=== PATIENT | female | born 1955 | race Caucasian/White ===

== ENCOUNTER 2020-10-05 23:07 | Inpatient (IN) | payer MEDICARE, SELFPAY ==
[2020-10-05 23:19] VITALS: BP 168/112; PULSE 73; RESP 20; TEMP 36.8; O2SAT 97; BMI 36.6
[2020-10-06] VITALS (28 sets, daily range): BP systolic 105–229; BP diastolic 72–118; PULSE 66–79; RESP 12–29; TEMP 36.8–37.3; O2SAT 90–98
[2020-10-06 00:54] LABS: Alanine Aminotransferase 44 U/L (0-33); Albumin Level 4.6 g/dL (3.5-5.2); Alkaline Phosphatase 105 IU/L (35-105); Anion Gap 16.9 (5-19); Aspartate Amino Transferase 20 U/L (0-32); Blood Urea Nitrogen 12 mg/dL (8-23); Calcium 10.5 mg/dL (8.5-10.5); Carbon Dioxide 27 mmol/L (22-29); Chloride 92 mmol/L (98-107); Creatinine Clr Calc Pharmacy 72.4521; Globulin 3.5 g/dL (1.3-4.6); Glucose 167 mg/dL (65-115); Lipase 23 U/L (13-60); Osmolality Calculated 280 mOsm/kg (285-295); Sodium 133 mmol/L (136-145); Total Bilirubin 0.9 mg/dL (0.15-1.2); Total Protein 8.1 g/dL (6.6-8.7)
--- NOTE | 2020-10-06 01:04 | W.ED.ABDPA2 ---
HPI - Abdominal Pain General: Chief Complaint: Abdominal Pain Stated Complaint: Abdominal Pain Time Seen by Provider: 10/06/20 00:43 Source: patient and family Mode of arrival: ambulatory Limitations: no limitations History of Present Illness: HPI narrative: Ms. Abrams is a nice 64-year-old female who comes in with a complaint of right upper quadrant abdominal pain. Patient states that she has been sick and nauseated and is vomited at least 3-4 times. Her vomit was nonbloody. She states eating or drinking makes her pain worse and really nothing makes it better. Patient denies having anything similar to this in the past. She denies any chest pain, shortness of breath, fever, cough or respiratory complaints. Denies any diarrhea or constipation. Patient does not describe any urinary frequency, urgency or dysuria. Patient states that she was concerned as her pain was not getting better and so she elected to come to the hospital to get it checked out. Patient states currently her pain is better but is still present. She denies any chronic medical problems although she states she is been told in the past she has high blood pressure but she does not take any medicine for this. Patient has had a small bowel resection in the past when she was 6 months old for intussusception but no other surgeries since that time. Associated Symptoms: Reports nausea and vomiting; Denies chills, coffee ground emesis, constipation, GI cramping, diarrhea, dysuria, fever(s), heartburn, hematochezia, hematuria, hematemesis, melena and syncope Review of Systems Const: Denies: fever(s), chills, body aches, fatigue, malaise or diaphoresis Eyes: Denies: change in vision, blurry vision, photophobia, eye discomfort, eye discharge, eye redness or yellow eyes ENMT: Denies: throat pain, odynophagia, hoarseness, swelling of lips/tongue, ear or mastoid pain, ear discharge, change in hearing or nasal discharge Card: Denies: chest pain, palpitations, irregular heart rhythm, edema, lightheadedness, syncope, pre-syncope, dyspnea on exertion or orthopnea Resp: Denies: dyspnea, productive cough, non-productive cough, wheezing, hemoptysis or chest congestion GI: Reports: abdominal pain, nausea and vomiting; Denies: hematemesis, coffee ground emesis, heartburn, diarrhea, constipation, GI cramping, hematochezia or melena : Denies: flank pain, dysuria, urinary frequency, urinary urgency or hematuria Musc: Denies: neck pain, back pain, extremity pain, extremity swelling, joint pain, joint swelling, joint redness, joint warmth or joint stiffness Skin/Breast: Denies: rash, pruritus, erythema, skin pain or skin tenderness Neuro: Denies: headache(s), numbness in extremities, weakness in extremities, sensory changes, lack of coordination, difficulty walking, dizziness, vertigo, confusion, Slurred speech present or seizure-like activity Jose Alejandro/Lymph: Denies: easy bruising, easy bleeding, petechiae, purpura or enlarged lymph nodes All/Imm: Denies: urticaria, throat swelling, tongue swelling, facial swelling or acute wheezing PFSH ED PFSH: Medical History (Updated 10/06/20 @ 05:35 by Kan Mathews MD) Hypertension Surgical History (Updated 10/06/20 @ 05:37 by Kan Mathews MD) H/O resection of small bowel Intussusception as an Laceration of neck Anterior superficial neck injury sutured -- ran into barbed wire Vaginal injury Repair of vaginal tear sustained during childbirth Social History (Updated 10/06/20 @ 05:36 by Kan Mathews MD) Smoking and tobacco status: never smoked Alcohol intake: current Alcohol intake frequency: holidays/special occasions only Alcohol use comment: Maybe twice a year Physical Exam Const: COMMON NORMALS: no acute distress, patient oriented x3, no limitations and alert GENERAL APPEARANCE: cooperative HENMT: COMMON NORMALS: normocephalic, atraumatic, external ears normal, EAC's normal and Normal external nose present HEAD & SCALP: normal to inspection, normocephalic and atraumatic FACE & SINUS: normal facial exam and face symmetric NOSE: Normal external nose present and Normal nares present EXTERNAL EAR: Yes external ears normal EXTERNAL AUDITORY CANAL: EAC's normal MOUTH: Normal oral and palatal mucosa present, lip normal and tongue normal Eye: COMMON NORMALS: Equal, round and reactive pupils present and conjunctivae normal GENERAL EYE: appearance normal, both eyes and all related structures ALIGNMENT: Yes alignment normal PERIORBITAL: periorbital findings normal EYELID: eyelids normal CONJUNCTIVA: Yes conjunctivae normal SCLERA: sclerae normal PUPIL: Yes Equal, round and reactive pupils present Neck/C-Spine: COMMON NORMALS: full ROM, no lymphadenopathy, supple, no meningeal signs and no JVD GENERAL: Yes normal visual inspection and Yes trachea midline Chest: COMMONS NORMALS: normal inspection of the chest and normal palpation of entire chest wall Resp: COMMON NORMALS: normal respiratory effort, No retractions, No use of accessory muscles and clear to auscultation bilaterally EFFORT & INSPECTION: Yes able to speak in complete sentences and Yes symmetric chest movement AUSCULTATION: clear to auscultation bilaterally, no crackles, no rales, no rhonchi and no wheezes Cardio: COMMON NORMALS: no JVD, regular rate, regular rhythm, S1 normal heart sound present and S2 normal heart sound present RATE: regular rate RHYTHM: regular rhythm HEART SOUNDS: S1 normal heart sound present, S2 normal heart sound present, no click, no gallops, no murmurs and no rubs GI: COMMON NORMALS: No hepatosplenomegaly present PALPATION: Yes Tenderness to palpation present (GI) Details: RUQ (severe), No Guarding due to palpation present (GI), No Rigid due to palpation, Yes No hepatosplenomegaly present, No Hernia present, No Palpable mass present and No Pulsatile mass present : COMMON NORMALS: Yes no CVA tenderness BLADDER/KIDNEY EXAM: Yes no CVA tenderness EXTERNAL FEMALE EXAM: No Hernia present Back/Pelvis: COMMON NORMALS: no CVA tenderness, thoracic and lumbar spine normal to inspection, no thoracic nor lumbar tenderness and thoraco-lumbar ROM normal Extremity: COMMON NORMALS: normal to inspection, full ROM, capillary refill normal, no joint enlargement, no clubbing, cyanosis or edema and no calf tenderness Neuro: COMMON NORMALS: patient oriented x3, CN's II-XII intact bilaterally, moves all extremities, no focal motor deficits and no sensory deficits noted SENSORIUM/ORIENTATION: Yes alert MENINGEAL SIGNS: Yes no meningeal signs SPEECH: speech normal Psych: COMMON NORMALS: mental status grossly normal, Normal thought process present, cooperative, normal affect, speech normal and activity/motor behavior normal SPEECH: Yes normal speech THOUGHT PROCESS: Normal thought process present Skin: COMMON NORMALS: no rashes or lesions noted, turgor normal, no jaundice, no petechiae and no mottling GENERAL SKIN EXAM: no rashes or lesions noted and turgor normal Course Vital Signs: Vital signs: Vital Signs Temperature 98.2 F 10/05/20 23:19 Pulse Rate 71 10/06/20 04:35 Respiratory Rate 19 H 10/06/20 03:02 Blood Pressure 165/92 10/06/20 04:35 Pulse Oximetry 94 10/06/20 04:35 MDM - Abdominal Pain MDM Narrative: Medical decision making narrative: Patient's signs and symptoms are consistent with gallstone pancreatitis. There is no sign of a common bile duct stone at this time. I have reviewed the case in full with Dr. Mathews and he is agreeable to admission for IV antibiotics and probable cholecystectomy. Differential Diagnosis: Differential diagnosis abdominal pain: Likely abdominal pain, acute appendicitis, calculus of kidney, constipation, diverticulitis, gastroenteritis, pancreatitis and small bowel obstruction Lab Data: Attestation: I reviewed the patient's lab results. Labs: Lab Results 10/06/20 10/06/20 10/06/20 Range/Units 00:20 00:20 00:40 WBC 21.2 H (4.0-10.0) 10^3/ uL RBC 5.91 H (4.1-5.3) 10^6/u L Hgb 15.8 H (11.5-15.3) g/dL Hct 47.8 H (37.0-47.0) % MCV 80.9 L (81-99) fL MCH 26.7 L (28.0-34.0) pg MCHC 33.1 (30.0-36.0) g/dL RDW 13.5 (12.1-15.1) % Plt Count 343 (130-400) 10^3/c mm MPV 11.0 H (7.4-10.4) fL Neut % (Auto) 85.2 % Lymph % (Auto) 6.4 % [place] % (Auto) 7.4 % Eos % (Auto) 0.2 % Baso % (Auto) 0.3 % Neut # (Auto) 18.06 H (1.8-7.7) 10^3/u L Lymph # (Auto) 1.4 (0.8-4.8) 10^3/u L [place] # (Auto) 1.6 H (0.2-0.9) 10^3/u L Eos # (Auto) 0.0 (0.0-0.8) 10^3/u L Baso # (Auto) 0.1 (0.0-0.1) 10^3/u L Nucleated RBC % (a uto) 0 % Nucleated RBCs # 0.0 /100WBC Sodium 133 L (136-145) mmol/L Potassium 2.9 L (3.5-5.1) mmol/L Chloride 92 L (98-107) mmol/L Carbon Dioxide 27 (22-29) mmol/L Anion Gap 16.9 (5-19) BUN 12 (8-23) mg/dL Creatinine 0.6 (0.5-0.9) mg/dL GFR Calculation 100.0 (90-130) mL/min Glucose 167 H (65-115) mg/dL Calculated Osmolal ity 280 L (285-295) mOsm/k g Calcium 10.5 (8.5-10.5) mg/dL Total Bilirubin 0.9 (0.15-1.2) mg/dL AST 20 (0-32) U/L ALT 44 H (0-33) U/L Alkaline Phosphata se 105 (35-105) IU/L Total Protein 8.1 (6.6-8.7) g/dL Albumin 4.6 (3.5-5.2) g/dL Globulin 3.5 (1.3-4.6) g/dL Lipase 23 (13-60) U/L Urine Color Yellow (Yellow) Urine Appearance Sl hazy (CLEAR) Urine pH 6.5 (5-7) Ur Specific Gravit y 1.015 (1.005-1.030) Urine Protein 2+ H (Negative) Urine Glucose (UA) 2+ (Normal) Urine Ketones 2+ H (Negative) Urine Blood 2+ H (Negative) Urine Nitrate Negative (Negative) Urine Bilirubin 1+ H (Negative) Urine Urobilinogen 1 H (Negative) mg/dL Ur Leukocyte Reina ase 2+ H (Negative) Urine RBC 15-25 H (0-2) /hpf Urine WBC 25-40 H (0-5) /hpf Ur Squamous Epith Cells 25-40 H (0-5) /hpf Amorphous Sediment Not Reportable Urine Bacteria 2+ H (NONE) /hpf Imaging Data ^: US: Radiologist's impression: [facility] [address] [place] [address] Ultrasound Report Signed Patient: Mariama Busby Unit #: [id number] : 1955 Age/Sex: 64 / F ADM Date: 10/05/20 Loc: ER Room/Bed: Attending Dr: Ordering Provider/Ordering MD: Yessi Kennedy DO Date of Service: 10/06/20 Procedure(s): US abdomen complete* [id number] Accession Number(s): [id number] Report Number: [id number] PROCEDURE INFORMATION: Exam: US Abdomen Complete Exam date and time: 10/06/2020 2:00 AM Age: 64 years old Clinical indication: Abdominal pain; Acute; Prior surgery; Surgery date: 6+ months; Surgery type: Intussusception at 6 months; Patient HX: PT is npo since 10 am yesterday TECHNIQUE: Imaging protocol: Real-time ultrasound of the abdomen with image documentation. COMPARISON: No relevant prior studies available. FINDINGS: Liver: The liver is mildly prominent measuring 17.2 cm craniocaudal dimension. Gallbladder: There is a Phrygian cap of the gallbladder. Gallstones and gallbladder sludge are seen within the pterygium cap and within the gallbladder neck. There is asymmetric gallbladder wall thickening measuring up to 5.2 mm. There is a positive sonographic Butterfield sign elicited. Common bile duct: Common bile duct measures 6.9 mm. There is no evidence for extrinsic masses or choledocholithiasis. Pancreas: Visualized pancreas is unremarkable. Right kidney: Normal. No mass. No hydronephrosis. Left kidney: Normal. No mass. No hydronephrosis. Spleen: Normal. No splenomegaly. Aorta: Normal. No aneurysm. Inferior vena cava: Normal. US/US abdomen complete* [id number] IMPRESSION: 1. Phrygian cap filled with gallstones and gallbladder sludge. Gallstones and sludge is seen in the gallbladder neck as well. There is gallbladder wall thickening measuring up to 5.2 mm and a positive sonographic Butterfield sign is elicited. These findings are compatible with gallstone cholecystitis. 2. Mildly prominent common bile duct without evidence of extrinsic masses or choledocholithiasis. 3. Mild hepatomegaly Dictated By: Matt Collins MD Signed By: Matt Collins MD Signed Date/Time: 10/06/20225 DD/ 4 CT Abd/Pel: Radiologist's impression: [address] [address] [address] Scan Report Signed Patient: Mariama Busby Unit #: [id number] : 1955 Age/Sex: 64 / F ADM Date: 10/05/20 Loc: ER Room/Bed: Attending Dr: Ordering Provider/Ordering MD: Yessi Kennedy DO Date of Service: 10/06/20 Procedure(s): CT abdomen pelvis w con* [id number] Accession Number(s): [id number] Report Number: [id number] PROCEDURE INFORMATION: Exam: CT Abdomen And Pelvis With Contrast Exam date and time: 10/06/2020 2:05 AM Age: 64 years old Clinical indication: Abdominal pain; Generalized TECHNIQUE: Imaging protocol: Computed tomography of the abdomen and pelvis with intravenous contrast. Radiation optimization: All CT scans at this facility use at least one of these dose optimization techniques: automated exposure control; mA and/or kV adjustment per patient size (includes targeted exams where dose is matched to clinical indication); or iterative reconstruction. Contrast material: OMNI 300; Contrast volume: 95 ml; Contrast route: INTRAVENOUS (IV); COMPARISON: US abdomen complete* [id number] 10/06/2020 1:38 AM RADIATION DOSE METRICS: Total DLP (mGy-cm): 1222.77 FINDINGS: Lungs: Some strandy opacities are present in the left lung base medially likely representing chronic parenchymal scarring or atelectasis. Liver: Normal. No mass. Gallbladder and bile ducts: There is a pterygium cap of the gallbladder. Prominent gallstone is seen within the gallbladder neck. There is some gallbladder wall thickening seen measuring 5.6 mm There are findings compatible with gallstone cholecystitis seen on an abdominal ultrasound obtained earlier today. Pancreas: Normal. No ductal dilation. Spleen: Normal. No splenomegaly. Adrenal glands: Normal. No mass. Kidneys and ureters: There is a 3.3 mm nonobstructing left renal calculus present. Stomach and bowel: Unremarkable. No obstruction. No mucosal thickening. Appendix: No evidence of appendicitis. Intraperitoneal space: Unremarkable. No free air. No significant fluid collection. Vasculature: Unremarkable. No abdominal aortic aneurysm. Lymph nodes: Unremarkable. No enlarged lymph nodes. Urinary bladder: There are strandy and hazy opacity seen along the serosal margin of the bladder, findings could represent cystitis although the bladder is incompletely distended. Reproductive: Unremarkable as visualized. Bones/joints: Unremarkable. No acute fracture. Soft tissues: Unremarkable. CT/CT abdomen pelvis w con* [id number] IMPRESSION: 1. Findings compatible with gallstone cholecystitis. These findings correlate with the abdominal sonogram obtained earlier today. 2. 3.3 mm nonobstructing left renal calculus 3. Opacities are seen along the serosal margin of the bladder possibly representing inflammatory changes and cystitis although the bladder is incompletely distended. Radiation Dose CTDIVOL = (mGy): DLP = 1222.77 (mGy-cm) Dictated By: Matt Collins MD Signed By: Matt Collins MD Signed Date/Time: 10/06/20257 DD/ 6 Discharge Plan Discharge Patient Disposition: Admitted As Inpatient Admit Provider: Kan Mathews Clinical Impression: Acute calculous cholecystitis Condition: Stable Coding Level of Care Code ED Jailkeeper for Chg Fwd Exam Comprehensive
[2020-10-06 01:21] LABS: Potassium 2.9 mmol/L (3.5-5.1)
[2020-10-06 01:28] LABS: Basophils # 0.1 10^3/uL (0.0-0.1); Basophils % 0.3 %; Eosinophils % 0.2 %; Hematocrit 47.8 % (37.0-47.0); Hemoglobin 15.8 g/dL (11.5-15.3); Lymphocytes # 1.4 10^3/uL (0.8-4.8); Lymphocytes % 6.4 %; Mean Corpuscular HGB Conc 33.1 g/dL (30.0-36.0); Mean Corpuscular Hemoglobin 26.7 pg (28.0-34.0); Mean Corpuscular Volume 80.9 fL (81-99); Monocytes # 1.6 10^3/uL (0.2-0.9); Monocytes % 7.4 %; Neutrophils # 18.06 10^3/uL (1.8-7.7); Neutrophils % 85.2 %; Nucleated Red Blood Cells % 0 %; Platelet Count 343 10^3/cmm (130-400); Red Blood Count 5.91 10^6/uL (4.1-5.3); Red Cell Distribution Width 13.5 % (12.1-15.1); White Blood Count 21.2 10^3/uL (4.0-10.0)
[2020-10-06] MEDS: sodium chloride 0.9% 1,000 ML 999 ML IV (01:30)
[2020-10-06] MEDS: ondansetron 2 mg/ML SDV 2 mL 4 MG IVP (01:32)
[2020-10-06] MEDS: morphine 4 mg/mL SDV 1 mL IVP ×2 (01:32→06:27)
[2020-10-06 01:38] LABS: Blood Urine 2+ (Negative); Glucose Urine UA 2+ (Normal); Ketones Urine 2+ (Negative); Nitrate Urine Negative (Negative); Protein Urine 2+ (Negative); Specific Gravity, Urine 1.015 (1.005-1.030); Urine Appearance SL Hazy (CLEAR); Urine Color Yellow (Yellow); pH Urine 6.5 (5-7)
[2020-10-06 01:39] LABS: Add Urine Microscopic? YES; Bilirubin Urine 1+ (Negative); Leukocyte Esterase Urine 2+ (Negative); Urobilinogen Urine 1 mg/dL (Negative)
[2020-10-06 01:44] LABS: Add Urine Culture? No; Bacteria Urine 2+ /hpf; RBC Urine 15-25 /hpf (0-2); Squamous Epithelial Cell Urine 25-40 /hpf (0-5); WBC Urine 25-40 /hpf (0-5)
--- NOTE | 2020-10-06 02:03 | CTR_ITS ---
PROCEDURE INFORMATION: Exam: CT Abdomen And Pelvis With Contrast Exam date and time: 10/06/2020 2:05 AM Age: 64 years old Clinical indication: Abdominal pain; Generalized TECHNIQUE: Imaging protocol: Computed tomography of the abdomen and pelvis with intravenous contrast. Radiation optimization: All CT scans at this facility use at least one of these dose optimization techniques: automated exposure control; mA and/or kV adjustment per patient size (includes targeted exams where dose is matched to clinical indication); or iterative reconstruction. Contrast material: OMNI 300; Contrast volume: 95 ml; Contrast route: INTRAVENOUS (IV); COMPARISON: US abdomen complete* [id number] 10/06/2020 1:38 AM RADIATION DOSE METRICS: Total DLP (mGy-cm): 1222.77 FINDINGS: Lungs: Some strandy opacities are present in the left lung base medially likely representing chronic parenchymal scarring or atelectasis. Liver: Normal. No mass. Gallbladder and bile ducts: There is a pterygium cap of the gallbladder. Prominent gallstone is seen within the gallbladder neck. There is some gallbladder wall thickening seen measuring 5.6 mm There are findings compatible with gallstone cholecystitis seen on an abdominal ultrasound obtained earlier today. Pancreas: Normal. No ductal dilation. Spleen: Normal. No splenomegaly. Adrenal glands: Normal. No mass. Kidneys and ureters: There is a 3.3 mm nonobstructing left renal calculus present. Stomach and bowel: Unremarkable. No obstruction. No mucosal thickening. Appendix: No evidence of appendicitis. Intraperitoneal space: Unremarkable. No free air. No significant fluid collection. Vasculature: Unremarkable. No abdominal aortic aneurysm. Lymph nodes: Unremarkable. No enlarged lymph nodes. Urinary bladder: There are strandy and hazy opacity seen along the serosal margin of the bladder, findings could represent cystitis although the bladder is incompletely distended. Reproductive: Unremarkable as visualized. Bones/joints: Unremarkable. No acute fracture. Soft tissues: Unremarkable. CT/CT abdomen pelvis w con* [id number] IMPRESSION: 1. Findings compatible with gallstone cholecystitis. These findings correlate with the abdominal sonogram obtained earlier today. 2. 3.3 mm nonobstructing left renal calculus 3. Opacities are seen along the serosal margin of the bladder possibly representing inflammatory changes and cystitis although the bladder is incompletely distended. Radiation Dose CTDIVOL = (mGy): DLP = 1222.77 (mGy-cm)
[2020-10-06] MEDS: piperacillin-tazobactam 3.375 GM in sodium chloride 0.9% (plus) 50 ML IV ×2 (02:21→17:13)
[2020-10-06] MEDS: iohexol 300 mg/mL 100 mL Btl IV (02:40)
[2020-10-06] MEDS: labetalol 5 mg/mL SDV 20mL 10 MG IVP (02:59)
[2020-10-06] MEDS: potassium chloride premix 100 ML 25 MEQ IV (03:00)
--- NOTE | 2020-10-06 05:29 | P.HP_ITS ---
Providers/Chief Complaint Admitting Physician: Kan Mathews MD Chief Complaint: Abdominal Pain History of Present Illness Mariama Busby is a 64 year old female who says she was in her normal state of health until 1 week ago when she experienced some right upper quadrant discomfort after eating a spicy hamburger from [employer]. She said the pain was in her right upper quadrant and went around to her back. She had never experienced this pain before. She said by the end of the day it actually was a little bit better but it persisted throughout the next several days. 2 days ago on she ate some spicy tortellini soup and had a recurrence of the pain in the night. This time it was associated with nausea and vomiting. There was no evidence of hematemesis. She said she felt cold and clammy at times but never took her temperature. She said the pain persisted and so she came in the emergency room last night. Imaging revealed changes consistent with acute calculus cholecystitis. The patient has not noticed any type of food intolerance prior to 1 week ago. In short, it does not sound like she has had any type of ongoing symptoms of progressive biliary colic. Of note, the patient has a history of hypertension but is in between doctors right now, after most recently seeing a nurse practitioner for her medical care. She says that the Covid pandemic apparently has made it very difficult for her doctor's office to get back in touch with her when she calls and so she is going to change doctors. She was on medication for hypertension but she ran out and has not obtained more. Review of Systems General: Reports: 10 or more systems reviewed and unremarkable except in HPI and below Const: Reports: chills ( Cold and clammy ); Denies: fever(s) GI: Reports: abdominal pain, nausea, vomiting and constipation (Chronic); Denies: hematemesis, coffee ground emesis, hematochezia or melena Medications/Allergies Allergies Allergy/AdvReac Type Severity Reaction Status Date / Time No Known Allergies Allergy Verified 10/05/20 23:25 PFSH Acute PFSH: Medical History (Updated 10/06/20 @ 05:35 by Kan Mathews MD) Hypertension Surgical History (Updated 10/06/20 @ 05:37 by Kan Mathews MD) H/O resection of small bowel Intussusception as an infant Laceration of neck Anterior superficial neck injury sutured -- ran into barbed wire Vaginal injury Repair of vaginal tear sustained during childbirth Social History (Updated 10/06/20 @ 05:36 by Kan Mathews MD) Smoking and tobacco status: never smoked Alcohol intake: current Alcohol intake frequency: holidays/special occasions only Alcohol use comment: Maybe twice a year Vitals/I&O/Wt Last Vital Signs Temp 98.2 F 10/05/20 23:19 Pulse 71 10/06/20 04:35 Resp 19 H 10/06/20 03:02 BP 165/92 10/06/20 04:35 Pulse Ox 94 10/06/20 04:35 10/05/20 10/05/20 10/06/20 14:59 22:59 06:59 Intake Total 1050 / 1050 Balance 1050 / 1050 Weight last 48 hrs Weight 200 lb Physical Exam Narrative: EXAM NARRATIVE: The patient was encountered in her room in the emergency department. She does not appear to be in any acute distress. She is hypertensive. The pupils are equal. No carotid bruits are heard. The lungs are clear anteriorly. The heart is regular. The abdomen is moderately obese. There is a well-healed left paramedian incision. Bowel sounds are present but the patient has significant tenderness in the epigastrium and the right upper quadrant with a positive Butterfield's sign. No obvious masses are palpated. The extremities do not reveal any significant edema. Neurologically the patient appears to be grossly intact. Data : 10/06/20 00:20 10/06/20 00:20 Other Labs: Laboratory Tests 10/06/20 00:20 Total Bilirubin 0.9 AST 20 ALT 44 H Alkaline Phosphatase 105 Lipase 23 US: Radiologist's impression: Gallbladder ultrasound 10/06/2020 IMPRESSION: 1. Phrygian cap filled with gallstones and gallbladder sludge. Gallstones and sludge is seen in the gallbladder neck as well. There is gallbladder wall thickening measuring up to 5.2 mm and a positive sonographic Butterfield sign is elicited. These findings are compatible with gallstone cholecystitis. 2. Mildly prominent common bile duct without evidence of extrinsic masses or choledocholithiasis. 3. Mild hepatomegaly. CT Abd/Pel: Radiologist's impression: CT scan abdomen/pelvis 10/06/2020 IMPRESSION: 1. Findings compatible with gallstone cholecystitis. These findings correlate with the abdominal sonogram obtained earlier today. 2. 3.3 mm nonobstructing left renal calculus 3. Opacities are seen along the serosal margin of the bladder possibly representing inflammatory changes and cystitis although the bladder is incompletely distended. A&P Assessment and plan (1) Acute calculous cholecystitis: I discussed gallbladder disease and gallbladder surgery with the patient. Details of acute cholecystitis were discussed. I told her that the standard of care is to proceed with a cholecystectomy in the face of acute calculus cholecystitis. Surgical risks of bleeding, infection, internal organ injury, chances of an open procedure, etc. were all gone over. The patient seems to understand and is agreeable to proceeding with a cholecystectomy. The patient has been n.p.o. since yesterday. I will make arrangements for a laparoscopic or possibly open cholecystectomy this morning. Status: Acute (2) Hypertension: I expressed the importance of establishing with/following up with a primary care doctor regarding her hypertension. She knows that she needs to do this and said that she would. Status: Acute Attestations Medical Necessity Statement*: Based on my medical assessment, presenting symptoms and consideration of the scope of surgical therapy, I expect this patient will require treatment in the hospital for a period of time spanning less than 2 midnights, and is therefore being placed in observation status. Coding Level of Care Code Acute Help Desk Support Specialist for Gaurang Vinson Diagnoses Acute calculous cholecystitis K80.00 Hypertension I10
[2020-10-06 05:49] LABS: Lactic Sepsis W/Reflex 1.4 mmol/L (0.5-2.2)
[2020-10-06] MEDS: D5-NS 0.45% + KCL 20 mEq 20 MEQ/1,000 ML BAG 100 MEQ IV (06:28)
[2020-10-06] MEDS: sodium chloride 0.9% 1,000 ML 30 ML IV (09:10)
--- NOTE | 2020-10-06 09:14 | P.ANESASSM_ITS ---
Pre-Anesthetic Assessment Pre-Anesthetic Assessment: Height/Weight: Height 1.57 m Weight 90.718 kg Temp Pulse Resp BP Pulse Ox 98.2 F 71 19 H 164/78 94 10/05/20 23:19 10/06/20 08:30 10/06/20 08:30 10/06/20 08:30 10/06/20 04:35 Proposed Procedure: Operation Date: 10/06/20 09:30 Proposed Procedures p Laparoscopic Cholecystectomy(Not Applicable) - Kan Mathews MD Was Beta Sean taken within 24 hours: N/A Social: Social History: No alcohol and No tobacco Exam: Pre-Anes Outpt Exam: alert, oriented x 3, clear to auscultation bilaterally and regular rate & rhythm Airway: Submandibular: WNL Cervical ROM: WNL MP: 2 Dentition: Full Pulmonary: Pulmonary: None reported CV/HEM: CV/HEM: HTN : : None reported Hepatic: Hepatic: None reported GI: Comments: Acute jose manuel Metabolic: Metabolic: None reported Musc/skel: Musc/skel: None reported Neuropsych: Neuropsych: None reported Anesthetic Plan: ASA status: 2 Anesthesia: General Risk of > 500 ml blood loss (7ml/kg in children): No Meds/Allergies Current Medications: Current Medications Generic Name Dose Route Start Last Admin Trade Name Freq PRN Reason Stop Dose Admin Potassium Chloride /Dextrose/Sod Cl 20 meq in 1,000 m ls @ 100 mls/hr 10/06/20 06:12 10/06/20 06:28 D5-Ns 0.45% + Stephen l 20 Meq IV 100 mls/hr .Q10H DOUGLAS Administration Morphine Sulfate 4 mg 10/06/20 06:12 10/06/20 06:27 Morphine 4 Mg/Ml Sdv 1 Ml IVP 4 mg Q4H PRN Administration SEVERE PAIN PFSH Anesthesia PFSH: Medical History (Updated 10/06/20 @ 05:35 by Kan Mathews MD) Hypertension Surgical History (Updated 10/06/20 @ 05:37 by Kan Mathews MD) H/O resection of small bowel Intussusception as an Laceration of neck Anterior superficial neck injury sutured -- ran into barbed wire Vaginal injury Repair of vaginal tear sustained during childbirth Social History (Updated 10/06/20 @ 05:36 by Kan Mathews MD) Smoking and tobacco status: never smoked Alcohol intake: current Alcohol intake frequency: holidays/special occasions only Alcohol use comment: Maybe twice a year Data Anesthesia CBC & Chem 7: 10/06/20 00:20 10/06/20 00:20 Other Labs: Laboratory Results - last 48 hr 10/06/20 10/06/20 10/06/20 00:20 00:20 00:40 WBC 21.2 H RBC 5.91 H Hgb 15.8 H Hct 47.8 H MCV 80.9 L MCH 26.7 L MCHC 33.1 RDW 13.5 Plt Count 343 MPV 11.0 H Neut % (Auto) 85.2 Lymph % (Auto) 6.4 [place] % (Auto) 7.4 Eos % (Auto) 0.2 Baso % (Auto) 0.3 Neut # (Auto) 18.06 H Lymph # (Auto) 1.4 [place] # (Auto) 1.6 H Eos # (Auto) 0.0 Baso # (Auto) 0.1 Nucleated RBC % (auto) 0 Nucleated RBCs # 0.0 Sodium 133 L Potassium 2.9 L Chloride 92 L Carbon Dioxide 27 Anion Gap 16.9 BUN 12 Creatinine 0.6 GFR Calculation 100.0 Glucose 167 H Calculated Osmolality 280 L Lactic Acid Calcium 10.5 Total Bilirubin 0.9 AST 20 ALT 44 H Alkaline Phosphatase 105 Total Protein 8.1 Albumin 4.6 Globulin 3.5 Lipase 23 Urine Color Yellow Urine Appearance Sl hazy Urine pH 6.5 Ur Specific [place] 1.015 Urine Protein 2+ H Urine Glucose (UA) 2+ Urine Ketones 2+ H Urine Blood 2+ H Urine Nitrate Negative Urine Bilirubin 1+ H Urine Urobilinogen 1 H Ur Leukocyte Esterase 2+ H Urine RBC 15-25 H Urine WBC 25-40 H Ur Squamous Epith Cells 25-40 H Amorphous Sediment Not Reportable Urine Bacteria 2+ H 10/06/20 05:10 WBC RBC Hgb Hct MCV MCH MCHC RDW Plt Count MPV Neut % (Auto) Lymph % (Auto) [place] % (Auto) Eos % (Auto) Baso % (Auto) Neut # (Auto) Lymph # (Auto) [place] # (Auto) Eos # (Auto) Baso # (Auto) Nucleated RBC % (auto) Nucleated RBCs # Sodium Potassium Chloride Carbon Dioxide Anion Gap BUN Creatinine GFR Calculation Glucose Calculated Osmolality Lactic Acid 1.4 Calcium Total Bilirubin AST ALT Alkaline Phosphatase Total Protein Albumin Globulin Lipase Urine Color Urine Appearance Urine pH Ur Specific [place] Urine Protein Urine Glucose (UA) Urine Ketones Urine Blood Urine Nitrate Urine Bilirubin Urine Urobilinogen Ur Leukocyte Esterase Urine RBC Urine WBC Ur Squamous Epith Cells Amorphous Sediment Urine Bacteria Cardiac Studies: No Data to Display
[2020-10-06] MEDS: metroNIDAZOLE IV 500 MG/100 ML PREMIX 100 MG IV (10:12)
--- NOTE | 2020-10-06 11:10 | PM.OP ---
Operative Report Date of procedure: October 06, 2020 Pre-op Diagnosis: Acute calculus cholecystitis. Post-op diagnosis: same Procedure Done: Laparoscopic cholecystectomy. Specimens removed/disposition: Gallbladder. Surgeon: Kan Mathews Anesthesia: General Estimated blood loss (mL): 25 Complications: None. Condition: stable Disposition: PACU Procedure: The patient was brought to the Operating Room and was placed in a supine position on the Operating Room table. General endotracheal anesthesia was induced. The abdomen was prepped and draped in a sterile fashion. A small vertical incision was carried out in the inferior aspect of the umbilicus. Blunt dissection was carried out down to the fascia, which was grasped with a Dolores clamp. A stay suture of 0 Vicryl was placed on either side of the midline and the midline fascia was incised. The underlying peritoneum was opened bluntly and the Gale port was placed directly into the peritoneal cavity and was held in place with the inflatable balloon. The peritoneal cavity was insufflated with carbon dioxide. The laparoscope was used to inspect the abdominal cavity. The gallbladder was clearly distended and edematous with some inflammatory changes consistent with changes typical of acute cholecystitis. No other gross abnormalities were noted. A 5 millimeter port was placed in the epigastrium under direct vision. Two 5-millimeter ports were placed on the right side of the abdomen under direct vision. The gallbladder was clearly too distended to grasp and so a laparoscopic needle was used to remove approximately 50 mL of clear mucousy fluid from the gallbladder lumen so that it could be manipulated more easily. The gallbladder was grasped and was elevated. Blunt dissection and hydrodissection were carried out in the infundibular region of the gallbladder and the cystic duct and cystic artery were identified. The gallbladder was partially removed from the liver bed using cautery and the spatula to confirm the anatomy before the structures were clipped and divided. The tissue around the infundibulum as well as in the plane between the gallbladder and liver was very edematous and fragile. The gallbladder was then removed from the liver bed using cautery and the spatula. A small hole was inadvertently made in the gallbladder during the dissection and a small amount of mucousy material drained from the lumen but no stones were ever seen to have fallen from the gallbladder. After the gallbladder had been removed from the liver bed, the laparoscope was moved to the epigastric port and the gallbladder was removed from the peritoneal cavity through the umbilical port site after being placed in a laparoscopic bag. The skin incision had to be elongated slightly inferiorly to allow passage of the laparoscopic bag with the gallbladder and its contents. The stay sutures of Vicryl were tied to each other at the umbilicus, closing the defect so that it was airtight. The perihepatic spaces were extensively irrigated with saline and the liver bed was reinspected. No ongoing problems were seen. The remaining ports were removed from the abdominal wall and the pneumoperitoneum was evacuated. All skin incisions were closed using inverted interrupted sutures of 4-0 Vicryl. Benzoin and Steri-Strips were placed over the incisions and Band-Aids followed. The patient was taken to the Recovery Area in stable condition postoperatively.
--- NOTE | 2020-10-06 11:36 | P.PCN_ITS ---
PACU note PACU note: VSS, Good respiratory effort, report to LAUNDRY OPERATOR FINISHING Post-Anesthesia Exam: awake Disposition: back to floor
--- NOTE | 2020-10-06 11:36 | PM.PACU ---
PACU note PACU note: VSS, Good respiratory effort, report to BULLDOZER PRESS OPERATOR Post-Anesthesia Exam: awake Disposition: back to floor
--- NOTE | 2020-10-06 11:41 | P.ANESPOST_ITS ---
Inpatient post-anesthesia follow up: Airway intact: Yes Vital signs: Temperature 99.1 F Pulse Rate [Right Radial] 73 Pulse Rate 79 Respiratory Rate 12 Blood Pressure [Le ft Arm] 168/112 Blood Pressure 129/72 Pulse Oximetry 97 Oxygen Delivery Me thod Simple Mask Oxygen Flow Rate 8 Fraction of Inspir ed Oxygen Hydration adequate: Yes Nausea and vomiting: No Pain level: 2 Ramón tional Comments: Sedated
[2020-10-06] MEDS: famotidine 20 mg/2 mL INJ IVP ×2 (13:11→13:12)
[2020-10-06] MEDS: heparin 5,000 unit/mL INJ 1 mL 5000 UNIT SUBCUT (13:12)
[2020-10-06] MEDS: levalbuterol 0.63 mg/3 mL Neb INHALATION (21:46)
[2020-10-07] VITALS (19 sets, daily range): BP systolic 107–224; BP diastolic 71–130; PULSE 63–90; RESP 16–29; TEMP 36.3–37.6; O2SAT 93–97
[2020-10-07] MEDS: D5-NS 0.45% + KCL 20 mEq 20 MEQ/1,000 ML BAG 100 MEQ IV (00:06)
[2020-10-07] MEDS: heparin 5,000 unit/mL INJ 1 mL 5000 UNIT SUBCUT ×2 (00:07→11:52)
[2020-10-07] MEDS: famotidine 20 mg/2 mL INJ IVP ×2 (00:07→11:52)
[2020-10-07] MEDS: piperacillin-tazobactam 3.375 GM in sodium chloride 0.9% (plus) 50 ML IV ×3 (01:44→18:40)
[2020-10-07] MEDS: hyDRALAzine 20 mg/mL INJ 1 mL 10 MG IVP (03:09)
--- NOTE | 2020-10-07 03:22 | PC.NURSE ---
went to bathroom and didn't have hat in place yet
--- NOTE | 2020-10-07 03:24 | PM.CONSULT ---
Providers/Reason For Consult Consulting Physican/Specialty*: Hospitalist service Reason for Consult*: Hypertensive urgency Attending Physician: Kan Mathews MD History of Present Illness History of Present Illness Mariama Busby is a 64 year old female who is postop day 1 status post laparoscopic cholecystectomy, hospitalist service was requested for management of hypertension. After transfer from ICU to [facility] her systolic blood pressure was above 200 and diastolic around 100 mmHg. She was not complaining of any active chest pain, shortness of breath nausea or vomiting. She is endorsing some discomfort, abdominal bloating, able to pass flatus. No neurological changes orthopnea,& PND. No history of VT CHF stroke or cancer. Patient is stating that she was diagnosed with hypertension but she never took any medications for that. I gave her hydralazine 10 mg IV push which improved her blood pressure 155/91mmhg. I would request EKG and add to antihypertensive medications for now. Review of Systems Const: Reports: body aches and fatigue; Denies: fever(s) or chills Eyes: Denies: change in vision ENMT: Denies: throat pain Card: Denies: chest pain Resp: Denies: dyspnea GI: Reports: abdominal pain, nausea, GI cramping and excessive flatus; Denies: vomiting : Denies: flank pain Musc: Denies: neck pain Skin/Breast: Denies: rash Neuro: Denies: headache(s) Psych: Denies: anxiety Endo: Denies: polyuria Jose Alejandro/Lymph: Denies: easy bruising All/Imm: Denies: urticaria Meds/Allergies Home Medications and Allergies Home Medications Medication Instructions Recorded Confirmed Last Taken Type hydrocodone-acetaminophen 1 - 2 tab PO Q5H PRN #30 tab 10/06/20 Unknown Rx Allergies Allergy/AdvReac Type Severity Reaction Status Date / Time No Known Allergies Allergy Verified 10/05/20 23:25 Current Medications Current Medications Generic Name Dose Route Start Last Admin Trade Name Freq PRN Reason Stop Dose Admin Famotidine 20 mg 10/06/20 12:00 10/07/20 00:07 Famotidine 20 Mg/2 Ml Inj IVP 20 mg Q12H DOUGLAS Administration Heparin Sodium (Beef Lung) 5,000 unit 10/06/20 12:00 10/07/20 00:07 Heparin 5,000 Unit/Ml Inj 1 Ml SUBCUT 5,000 unit Q12H DOUGLAS Administration Piperacillin Sod/Tazobactam 50 mls @ 12.5 mls/hr 10/06/20 10:00 10/07/20 01:44 Sod 3.375 gm/ Sodium Chloride IV 12.5 mls/hr Q8H DOUGLAS Administration Protocol Levalbuterol HCl 0.63 mg 10/06/20 12:00 10/06/20 21:46 Levalbuterol 0.63 Mg/3 Ml Neb INHALATION 0.63 mg Q4H.RESPIRATORY DOUGLAS Administration PFSH Acute PFSH: Medical History Hypertension Surgical History H/O resection of small bowel Intussusception as an infant Laceration of neck Anterior superficial neck injury sutured -- ran into barbed wire Vaginal injury Repair of vaginal tear sustained during childbirth Family History Other Family history non-contributory Social History Smoking and tobacco status: never smoked Alcohol intake: current Alcohol intake frequency: holidays/special occasions only Alcohol use comment: Maybe twice a year Vitals/I&O/Wt Last Vital Signs Temp 98.1 F 10/07/20 02:32 Pulse 74 10/07/20 02:32 Resp 18 10/07/20 02:32 BP 224/130 10/07/20 02:32 Pulse Ox 96 10/07/20 02:32 10/06/20 10/06/20 10/07/20 14:59 22:59 06:59 Intake Total 150 / 150 1400 / 1550 Output Total 600 / 620 Balance 130 / 130 800 / 930 Weight last 48 hrs Weight 90.718 kg Physical Exam Narrative: EXAM NARRATIVE: Middle-age female who appears more than stated age Morbidly obese In distress complaining of abdominal bloating but able to pass flatus no abdominal pain S1, S2 no murmur appreciated no signs of heart failure Abdomen distended, bloated, bowel sounds present, no signs of peritonitis Lower extremity no edema gangrene ulcer Nonpitting edema Bilateral breath sounds without adventitious rhonchi or crackles Irritable mood secondary to abdominal bloating Skin without any ulcers No neurological deficit EOMI, PERRLA GCS 15 awake alert oriented timesx3 A&P Assessment and plan (1) Hypertensive urgency: Blood pressure reading 24/130 mmHg Asked the nurse to change blood pressure cuff I think size 11 might not be a good fit Recommended manual blood pressure reading Held her fluid resuscitation and gave hydralazine 10 mg IV push which improved her blood pressure currently eating 155/91 mmHg Not complain abdominal pain, no hemodynamic compromise or neurological signs for fluctuation in blood pressure I would add lisinopril and amlodipine for stage III hypertension Check TSH Also noticed hypokalemia on yesterday's lab, would recommend sending renin/angiotensin level as well Status: Acute Consult Attestations Medical Necessity Statement: As per general surgery Time Spent in Patient Care: (>than 50% of time spent in counselling and/or direct pt care on unit). 30mins Coding Level of Care Code Acute Journeyman Sheet Metal Worker for Gaurang Vinson Diagnoses Hypertensive urgency I16.0
[2020-10-07] MEDS: amlodipine 5 mg Tablet PO ×2 (04:04→08:54)
--- NOTE | 2020-10-07 04:20 | ECG_ITS ---
[facility] Test Date: 2020-10-07 Pat Name: Mariama Busby Department: Room: 278 Gender: Female Professor Of Apologetics: : 1955 Requested By: Zunilda Ernst Order Number: [id number] Mery MD: Simeon Gallo M.D. Measurements Intervals [place] Rate: 77 P: 1 MT: 135 QRS: -5 QRSD: 90 T: 1 QT: 384 QTc: 435 Interpretive Statements SINUS RHYTHM No previous ECG available for comparison Electronically Signed On 10-07-2020 17:00:40 FABRIC FINISHER by Simeon Gallo M.D. [id number]
[2020-10-07 06:21] LABS: Basophils # 0.1 10^3/uL (0.0-0.1); Basophils % 0.4 %; Eosinophils % 0.1 %; Hematocrit 40.3 % (37.0-47.0); Hemoglobin 12.7 g/dL (11.5-15.3); Lymphocytes # 1.8 10^3/uL (0.8-4.8); Lymphocytes % 11.2 %; Mean Corpuscular HGB Conc 31.5 g/dL (30.0-36.0); Mean Corpuscular Volume 85.7 fL (81-99); Mean Platelet Volume 11.6 fL (7.4-10.4); Monocytes # 1.5 10^3/uL (0.2-0.9); Monocytes % 9.3 %; Neutrophils # 12.73 10^3/uL (1.8-7.7); Neutrophils % 78.4 %; Nucleated Red Blood Cells % 0 %; Platelet Count 248 10^3/cmm (130-400); Red Cell Distribution Width 14.2 % (12.1-15.1); White Blood Count 16.2 10^3/uL (4.0-10.0)
[2020-10-07 06:26] LABS: Alanine Aminotransferase 40 U/L (0-33); Albumin Level 3.5 g/dL (3.5-5.2); Alkaline Phosphatase 75 IU/L (35-105); Aspartate Amino Transferase 32 U/L (0-32); Blood Urea Nitrogen 12 mg/dL (8-23); Calcium 8.8 mg/dL (8.5-10.5); Carbon Dioxide 24 mmol/L (22-29); Chloride 101 mmol/L (98-107); Creatinine Clr Calc Pharmacy 72.4521; Glomerular Filtration Rate 71.8 mL/min (90-130); Glucose 108 mg/dL (65-115); Osmolality Calculated 282 mOsm/kg (285-295); Sodium 136 mmol/L (136-145); Total Bilirubin 0.6 mg/dL (0.15-1.2); Total Protein 6.5 g/dL (6.6-8.7)
[2020-10-07 06:27] LABS: Anion Gap 14.7 (5-19); Potassium 3.7 mmol/L (3.5-5.1)
[2020-10-07 06:35] LABS: Thyroid Stimulating Hormone 1.27 uIU/mL (0.27-4.20)
[2020-10-07] MEDS: levalbuterol 0.63 mg/3 mL Neb INHALATION ×4 (08:37→21:13)
[2020-10-07] MEDS: lisinopril 10 mg Tablet PO (08:54)
--- NOTE | 2020-10-07 09:43 | PC.CHAP ---
Pastoral Care Encounter/Spiritual Assessment Type of Contact [] Declined yeast culture developer visit [] Patient/Family/Request visit [] Outpatient visit [] Follow-up visit [] Physician referral [] Code/Alert [x] Routine visit [] Staff referral [] Actively dying [] Patient sleeping [] Family support [] [] Out of room [] Palliative care [] [] Receiving care in room [] Pre-surgical visit [] Trauma [] Long length of stay [] ICU visit [] Other: Relational/Emotional Strength [x] Patient feels connected with others/family/visitors/staff [] Distress [] Loneliness/isolation [] Abandonment Spirituality of Patient [x] Person of Aruna [] Attends Tenriism of their Aruna [] Believes in Prayer [] Reads Bible or Orthodoxy materials [] There are Spiritual issues to be addressed Heading Matcher And Assembler Interventions [x] Prayer [x] Active listening [] Non-anxious presence [] Spiritual/emotional support [] Crisis/trauma care [] Spiritual counseling [] Bereavement support [] Provided bereavement packet [] Provided Bible/devotional materials [] Provided toy/stuffed animal, coloring book to patient or family member [] Provided Communion [] Anointing/[place] [] Salvation [x] Completed spiritual assessment [] Other: Impact on Illness or Injury [] Angry [] Fearful [] Anxious [] Often cries [] Exhaustion [] Unable to work [] Unable to attend judaism [] Unable to walk/stand [] Unable to read [] Unable to drive [] Unable to eat/drink [] Unable to sleep [] Unable to be with family [] Patient intubated [] Other: Summary feeling ,\much better today Time spent with patient 15 min
--- NOTE | 2020-10-07 09:46 | PM.PN ---
Subjective Subjective: Interval history: The patient says she feels better than she did preoperatively, but she is not passing flatus and feels bloated. She does have a history of constipation. I consulted the hospitalist team urgently in the middle of the night for a reported blood pressure of 220/130. Vitals/I&O/Wt Last Vital Signs Temp 97.4 F L 10/07/20 08:00 Pulse 82 10/07/20 08:42 Resp 16 10/07/20 08:40 BP 176/87 10/07/20 08:00 Pulse Ox 93 10/07/20 08:40 10/06/20 10/07/20 10/07/20 22:59 06:59 14:59 Intake Total 1400 / 1550 Output Total 600 / 620 Balance 800 / 930 Weight last 48 hrs Weight 200 lb Physical Exam Narrative: EXAM NARRATIVE: Blood pressure is better. Bowel sounds are very infrequent. The incisions look good; she does have a developing contusion underneath her umbilicus. She has the expected amount of tenderness. Data : 10/07/20 04:59 10/07/20 04:59 A&P Assessment and plan (1) Acute calculous cholecystitis: Status post laparoscopic cholecystectomy on 10/06/2020 for acute calculus cholecystitis. The patient appears to have a postoperative ileus but is otherwise feeling better than she was preoperatively. Ambulate today. I am going to change the patient to inpatient status; the patient requires further inpatient care for treatment of her postoperative ileus as well as her hypertension. Status: Acute (2) Hypertensive urgency: Hospitalists' assistance is much appreciated. Preoperatively the patient's systolic blood pressure was around 170. I was originally willing to watch this with plans for the patient to follow-up with her primary care physician, but her blood pressure was up significantly in the middle of the night and so the hospitalist team was consulted urgently. Status: Acute Attestations Medical Necessity Statement*: The patient is being changed to inpatient status for a postoperative ileus and urgent treatment of hypertension. Coding Level of Care Code Acute Accounts Administrator for Edwardo Karel Diagnoses Acute calculous cholecystitis K80.00 Hypertensive urgency I16.0
--- NOTE | 2020-10-07 10:09 | PM.PN ---
Subjective Subjective: Interval history: Mariama has a past much gas. She reports her abdomen feels somewhat bloated. No nausea or vomiting. Denies any headache or shortness of breath. Medications: Reviewed: Yes Vitals/I&O/Wt Last Vital Signs Temp 97.4 F L 10/07/20 08:00 Pulse 82 10/07/20 08:42 Resp 16 10/07/20 08:40 BP 176/87 10/07/20 08:00 Pulse Ox 93 10/07/20 08:40 10/06/20 10/07/20 10/07/20 22:59 06:59 14:59 Intake Total 1400 / 1550 Output Total 600 / 620 Balance 800 / 930 Weight last 48 hrs Weight 90.718 kg Physical Exam Narrative: EXAM NARRATIVE: General exam is no apparent distress Cardiovascular regular rate and rhythm without murmur Lungs clear Abdomen is soft, positive bowel sounds. Surgical site without evidence of significant drainage or erythema Extremities no cyanosis clubbing or edema Data : 10/07/20 04:59 10/07/20 04:59 A&P Assessment and plan (1) Hypertensive urgency: Blood pressure is much better. Continue Norvasc, lisinopril Will need follow-up with primary care provider in about 1 week. They can follow-up on pending renin and aldosterone levels as well. No evidence of hypokalemia this morning TSH was checked and normal Status: Acute Attestations Medical Necessity Statement*: As per primary Coding Level of Care Code Acute Metal Fabricator Welder for Chg Fwd Diagnoses Hypertensive urgency I16.0
[2020-10-07] MEDS: bisacodyl 5 mg Tablet 10 MG PO (10:25)
[2020-10-07] MEDS: HYDROcodone-acetaminophen 5-325 mg Tablet PO (18:44)
[2020-10-08] VITALS (12 sets, daily range): BP systolic 136–172; BP diastolic 82–104; PULSE 66–94; RESP 16–20; TEMP 36.7–37.4; O2SAT 94–99
[2020-10-08] MEDS: heparin 5,000 unit/mL INJ 1 mL 5000 UNIT SUBCUT ×2 (00:59→11:56)
[2020-10-08] MEDS: famotidine 20 mg/2 mL INJ IVP ×2 (01:04→11:56)
[2020-10-08] MEDS: piperacillin-tazobactam 3.375 GM in sodium chloride 0.9% (plus) 50 ML IV ×3 (03:15→17:34)
[2020-10-08] MEDS: amlodipine 5 mg Tablet PO (08:51)
[2020-10-08] MEDS: lisinopril 10 mg Tablet PO (08:51)
--- NOTE | 2020-10-08 09:02 | PC.NURSE ---
patient just returning from the restroom. bp was 166/104 i reported it to the nurse. I redid the bp and now it is 172/103.
[2020-10-08] MEDS: levalbuterol 0.63 mg/3 mL Neb INHALATION ×4 (09:16→20:18)
[2020-10-08] MEDS: HYDROcodone-acetaminophen 5-325 mg Tablet PO (10:12)
--- NOTE | 2020-10-08 10:40 | P.PN_ITS ---
Subjective Subjective: Interval history: Mariama reports she feels about the same to slightly better. She did pass a little bit of gas. Still feels bloated. Is able to tolerate some broth. Would like to have a suppository. Medications: Reviewed: Yes Vitals/I&O/Wt Last Vital Signs Temp 99.4 F 10/08/20 08:00 Pulse 72 10/08/20 09:31 Resp 18 10/08/20 09:16 BP 172/103 10/08/20 09:03 Pulse Ox 98 10/08/20 09:16 10/07/20 10/08/20 10/08/20 22:59 06:59 14:59 Intake Total 408 / 1278 50 / 50 Balance 408 / 1278 50 / 50 Physical Exam Narrative: EXAM NARRATIVE: General exam is no apparent distress Cardiovascular regular rate and rhythm without murmur Lungs clear Abdomen is soft, positive bowel sounds. Surgical site without evidence of significant drainage or erythema Extremities no cyanosis clubbing or edema Data : 10/07/20 04:59 10/07/20 04:59 A&P Assessment and plan (1) Hypertensive urgency: Blood pressure varying quite a bit but likely secondary to pain Continue Norvasc, lisinopril Will need follow-up with primary care provider in about 1 week. They can follow-up on pending renin and aldosterone levels as well. TSH was checked and normal Status: Acute Additional A&P Information Status post laparoscopic cholecystectomy October 06. Postoperative ileus. Patient requesting Dulcolax suppository which I ordered today. Attestations Medical Necessity Statement*: As per primary Coding Level of Care Code Acute Head Track Coach for Gaurang Vinson Diagnoses Hypertensive urgency I16.0
[2020-10-08] MEDS: bisacodyl 10 mg Supp PR (11:01)
--- NOTE | 2020-10-08 11:39 | P.PN_ITS ---
Subjective Subjective: Interval history: The patient says she is feeling little better today. She is still not sure that if she has been passing flatus or not but feels like she has a bowel movement that is right there. Vitals/I&O/Wt Last Vital Signs Temp 99.4 F 10/08/20 08:00 Pulse 72 10/08/20 09:31 Resp 18 10/08/20 09:16 BP 172/103 10/08/20 09:03 Pulse Ox 98 10/08/20 09:16 10/07/20 10/08/20 10/08/20 22:59 06:59 14:59 Intake Total 408 / 1278 50 / 50 Balance 408 / 1278 50 / 50 Physical Exam Narrative: EXAM NARRATIVE: The patient was actually in the bathroom when I came to see her this morning. I will pokagon back around later Data : 10/07/20 04:59 10/07/20 04:59 A&P Assessment and plan (1) Acute calculous cholecystitis: Status post laparoscopic cholecystectomy on 10/06/2020 for acute calculus cholecystitis. I will pokagon around and see the patient later. Possible discharge later today. Status: Acute (2) Hypertensive urgency: Hospitalists' assistance is much appreciated. Preoperatively the patient's systolic blood pressure was around 170. I was originally willing to watch this with plans for the patient to follow-up with her primary care physician, but her blood pressure was up significantly in the middle of the night following her surgery and so the hospitalist team was consulted urgently. Status: Acute Attestations Medical Necessity Statement*: The patient requires ongoing inpatient care following her cholecystectomy for postoperative ileus and treatment/follow-up of hypertension urgency. Coding Level of Care Code Acute Computer Numerical Control Grinder for [facility] Karel Diagnoses Acute calculous cholecystitis K80.00 Hypertensive urgency I16.0
[2020-10-08] MEDS: bisacodyl 5 mg Tablet 10 MG PO (11:56)
[2020-10-08] MEDS: magnesium citrate Btl 296 mL PO (16:38)
[2020-10-09] VITALS (12 sets, daily range): BP systolic 134–167; BP diastolic 84–97; PULSE 70–121; RESP 16–18; TEMP 36.8–37.7; O2SAT 93–96
--- NOTE | 2020-10-09 01:40 | ECG_ITS ---
[facility] Test Date: 2020-10-09 Pat Name: Mariama Busby Department: Room: 278 Gender: Female Forestry Workers: : 1955 Requested By: Zunilda Enrst Order Number: [id number] Mery MD: Dana Alcaraz M.D. Measurements Intervals [place] Rate: 121 P: [place]: QRS: 3 QRSD: 86 T: -14 QT: 305 QTc: 434 Interpretive Statements ATRIAL FIBRILLATION WITH RAPID VENTRICULAR RESPONSE MODERATE ST DEPRESSION [0.05+ mV ST DEPRESSION] Compared to ECG 10/07/2020 06:04:50 ST (T wave) deviation now present Sinus rhythm no longer present Electronically Signed On 10-09-2020 16:52:53 LICENSED VETERINARY TECHNICIAN by Dana Alcaraz M.D. [id number]
[2020-10-09] MEDS: heparin 5,000 unit/mL INJ 1 mL 5000 UNIT SUBCUT (02:18)
[2020-10-09] MEDS: piperacillin-tazobactam 3.375 GM in sodium chloride 0.9% (plus) 50 ML IV ×2 (02:20→09:37)
[2020-10-09] MEDS: famotidine 20 mg/2 mL INJ IVP ×2 (02:26→12:27)
[2020-10-09] MEDS: enoxaparin 100 mg/mL Syringe SUBCUT ×2 (03:07→16:19)
[2020-10-09 03:17] LABS: D Dimer 3.65 ug/mIFEU (0-0.59)
--- NOTE | 2020-10-09 07:10 | USCV_ITS ---
Mariama Busby Age: 64 Gender: F : 1955 Exam Date: 10/09/2020 09:16 Ordering Phys: Rod Murray MD Technologist: Genesis Summers [place]am [place] [facility] [place]ication: ABNORMAL LAB TESTING BP: 162 / 94 HR: 86 Rhythm: Sinus Technical Quality: Adequate MEASUREMENTS (Male / Female) Normal Values 2D ECHO LV Diastolic Diameter PLAX 3.4 cm 4.2 - 5.9 / 3.9 - 5.3 cm LV Systolic Diameter PLAX 2.5 cm LV Chamber Size 3.6 cm IVS Diastolic Thickness 1.4 cm 0.6 - 1.0 / 0.6 - 0.9 cm IVS Systolic Thickness 1.7 cm LVPW Diastolic Thickness 1.5 cm 0.6 - 1.0 / 0.6 - 0.9 cm LVPW Systolic Thickness 1.4 cm RV Chamber Size 2.6 cm LVOT Diameter 2.0 cm LV Ejection Fraction 2D Teich 52.2 % LV Ejection Fraction MOD 2C 37.6 % LV Ejection Fraction 2C AL 41.4 % LA Diameter 3.4 cm LA Width 2.9 cm LA Height 3.3 cm RA Width 2.7 cm RA Height 3.3 cm Aorta at Sinotubular Diameter 3.3 cm M-MODE LV Diastolic Diameter MM 5.6 cm 4.2 - 5.9 / 3.9 - 5.3 cm LV Systolic Diameter MM 3.8 cm LV Ejection Fraction MM Teich 61.0 % IVS Diastolic Thickness MM 1.0 cm 0.6 - 1.0 / 0.6 - 0.9 cm IVS Systolic Thickness MM 1.7 cm LVPW Diastolic Thickness MM 1.1 cm 0.6 - 1.0 / 0.6 - 0.9 cm LVPW Systolic Thickness MM 1.5 cm RV Diastolic Diameter MM 1.1 cm Aortic Annulus Diameter 3.2 cm LA Ao Ratio MM 1.3 MV E Point Septal Separation 0.2 cm DOPPLER AV Peak Velocity 217.0 cm/s LVOT Peak Velocity 165.0 cm/s AV Area Cont Eq vti 3.3 cm squared AV Area Cont Eq pk 2.5 cm squared MV Area PHT 2.7 cm squared Mitral E to A Ratio 0.7 MV E' Velocity 51.0 cm/s Mitral E to MV E' Ratio 11.3 Mitral E to LV E' Lateral Ratio 12.4 Mitral E to LV E' Septal Ratio 10.6 TR Peak Velocity 242.8 cm/s TR Peak Gradient 23.6 mmHg TR Mean Velocity 160.8 cm/s TR Mean Gradient 12.9 mmHg TR Velocity Time Integral 56.1 cm TV Peak E Velocity 87.0 cm/s Right Atrial Pressure 3.0 mmHg Pulmonary Artery Systolic Pressu 26.6 mmHg PV Peak Velocity 111.0 cm/s RV Acceleration Time 0.2 s RV Ejection Time 0.3 s RV AcT/ET 0.5 FINDINGS Left Ventricle Normal left ventricular size. LV is hyperdynamic with EF of more than 65%. No regional wall motion abnormalities are seen. Mild left ventricular hypertrophy is seen. Grade 1 diastolic dysfunction is seen. Right Ventricle The right ventricle is normal in size and function. Right Atrium The right atrium is normal in size. Left Atrium The left atrium is normal in size. Mitral Valve Mild mitral annular calcification is seen. No mitral stenosis.. There is no mitral regurgitation. Aortic Valve Structurally normal aortic valve. There is mild aortic stenosis. Pressure gradient across aortic valve is 10 mmHg. Aortic regurgitation is seen. Tricuspid Valve Structurally normal tricuspid valve without significant stenosis. Mild tricuspid regurgitation. Insufficient TR jet to calculate RVSP. Pulmonic Valve Structurally normal pulmonic valve without significant stenosis. There is no pulmonic regurgitation. Pericardium Normal pericardium without effusion. Aorta Normal ascending aorta dimension. CONCLUSIONS LV is hyperdynamic with EF of more than 65%. Grade 1 diastolic dysfunction is seen. Mild left ventricular hypertrophy is present. Mild aortic valve stenosis with mean gradient of 10 mmHg is seen. No comparison studies are available. Simeon Gallo MD (Electronically Signed) Final Date: 19 October 2020 16:54 S
--- NOTE | 2020-10-09 07:32 | PM.PN ---
Subjective Subjective: Interval history: The patient went into atrial fibrillation with RVR last night. She is currently on a Cardizem drip on the floor, as there is no room in the ICU. She did not have any symptoms at the time but it was apparently noticed on the monitor as she was coming out of the bathroom. She says that she feels like she has palpitations at home sometimes but she did not feel anything unusual last night. On a good note, the patient drink some magnesium citrate last night and had multiple bowel movements. She says her abdomen feels good. Vitals/I&O/Wt Last Vital Signs Temp 98.3 F 10/09/20 04:00 Pulse 108 H 10/09/20 04:00 Resp 18 10/09/20 04:00 BP 159/88 10/09/20 04:00 Pulse Ox 95 10/09/20 04:00 10/08/20 10/09/20 10/09/20 22:59 06:59 14:59 Intake Total 290 / 870 Balance 290 / 870 Physical Exam Narrative: EXAM NARRATIVE: The patient's heart rate currently is around 80 and seems regular. Bowel sounds are present. The laparoscopic incisions look good. Data : 10/07/20 04:59 10/07/20 04:59 A&P Assessment and plan (1) Atrial fibrillation with rapid ventricular response: The patient's rate currently seems better. Management per hospitalist team. Status: Acute (2) Acute calculous cholecystitis: Status post cholecystectomy. Status: Acute (3) Hypertensive urgency: Management per hospitalist team. Status: Acute Attestations Medical Necessity Statement*: The patient requires continued inpatient care for atrial fibrillation with rapid ventricular response. Coding Level of Care Code Acute Behavioral Health Therapist for Gaurang Vinson Diagnoses Atrial fibrillation with rapid ventricular response I48.91 Acute calculous cholecystitis K80.00 Hypertensive urgency I16.0
[2020-10-09] MEDS: levalbuterol 0.63 mg/3 mL Neb INHALATION ×2 (07:40→11:35)
--- NOTE | 2020-10-09 07:42 | ECG_ITS ---
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 Measurements Intervals [place] Rate: 92 P: -4 [place]: 125 QRS: -12 QRSD: 93 T: -14 QT: 351 QTc: 435 Interpretive Statements SINUS RHYTHM MODERATE VOLTAGE CRITERIA FOR LVH, CONSIDER NORMAL VARIANT [MEETS CRITERIA IN ONE OF: R(aVL), S(V1), R(V5), R(V5/V6)+S(V1)] Compared to ECG 10/09/2020 01:47:40 Atrial fibrillation no longer present ST (T wave) deviation no longer present Electronically Signed On 10-09-2020 16:51:50 [employer] by Dana Alcaraz M.D. [id number]
[2020-10-09] MEDS: lisinopril 10 mg Tablet PO (09:36)
[2020-10-09] MEDS: metoprolol tartrate 25 mg Tablet PO (09:36)
[2020-10-09] MEDS: amlodipine 5 mg Tablet PO (09:36)
[2020-10-09 10:44] LABS: Basophils # 0.1 10^3/uL (0.0-0.1); Basophils % 0.6 %; Eosinophils # 0.3 10^3/uL (0.0-0.8); Eosinophils % 3.1 %; Hematocrit 39.8 % (37.0-47.0); Hemoglobin 12.9 g/dL (11.5-15.3); Lymphocytes # 1.4 10^3/uL (0.8-4.8); Lymphocytes % 13.8 %; Mean Corpuscular HGB Conc 32.4 g/dL (30.0-36.0); Mean Corpuscular Volume 83.4 fL (81-99); Mean Platelet Volume 11.1 fL (7.4-10.4); Monocytes # 0.6 10^3/uL (0.2-0.9); Monocytes % 5.9 %; Neutrophils # 7.71 10^3/uL (1.8-7.7); Neutrophils % 75.9 %; Nucleated Red Blood Cells % 0 %; Platelet Count 341 10^3/cmm (130-400); Red Blood Count 4.77 10^6/uL (4.1-5.3); Red Cell Distribution Width 13.7 % (12.1-15.1); White Blood Count 10.2 10^3/uL (4.0-10.0)
[2020-10-09 11:30] LABS: Alanine Aminotransferase 30 U/L (0-33); Albumin Level 3.5 g/dL (3.5-5.2); Alkaline Phosphatase 92 IU/L (35-105); Aspartate Amino Transferase 16 U/L (0-32); Blood Urea Nitrogen 11 mg/dL (8-23); Carbon Dioxide 25 mmol/L (22-29); Chloride 104 mmol/L (98-107); Globulin 3.2 g/dL (1.3-4.6); Glomerular Filtration Rate 55.5 mL/min (90-130); Glucose 149 mg/dL (65-115); Osmolality Calculated 292 mOsm/kg (285-295); Sodium 140 mmol/L (136-145); Total Bilirubin 0.5 mg/dL (0.15-1.2); Total Protein 6.7 g/dL (6.6-8.7)
[2020-10-09 11:32] LABS: Creatinine Clr Calc Pharmacy 57.9617
--- NOTE | 2020-10-09 13:26 | P.PN_ITS ---
Subjective Subjective: Interval history: Episode of atrial fibrillation was noted last night. She was given metoprolol, and then a Cardizem drip was started. She has since converted to sinus rhythm. She reports a past history of some palpitations. She denies any history of bleeding, anemia, bleeding disorder, ulcers. Medications: Reviewed: Yes Vitals/I&O/Wt Last Vital Signs Temp 99.0 F 10/09/20 11:36 Pulse 77 10/09/20 11:37 Resp 18 10/09/20 11:36 BP 134/84 10/09/20 11:36 Pulse Ox 94 10/09/20 11:36 10/08/20 10/09/20 10/09/20 22:59 06:59 14:59 Intake Total 290 / 870 50 / 920 480 / 480 Balance 290 / 870 50 / 920 480 / 480 Physical Exam Narrative: EXAM NARRATIVE: General exam is no apparent distress Cardiovascular regular rate and rhythm without murmur Lungs clear Abdomen is soft, positive bowel sounds. Surgical site without evidence of significant drainage or erythema Extremities no cyanosis clubbing or edema Data : 10/09/20 10:10 10/09/20 10:10 A&P Assessment and plan (1) Hypertensive urgency: Blood pressure varying quite a bit but likely secondary to pain Continue Norvasc, lisinopril Will need follow-up with primary care provider in about 1 week. They can fol low-up on pending renin and aldosterone levels as well. TSH was checked and normal Status: Acute Additional A&P Information Atrial fibrillation with rapid ventricular rate. Now converted to sinus rhythm. Patient with past history of palpitations. TSH normal. Discussed with her the risk and benefits of anticoagulation. Considering significant hypertension, age, past history of palpitations will initiate Eliquis 5 mg twice daily. Event monitor on discharge. Follow-up with cardiology 2 weeks. Echocardiogram obtained, full report pending. Status post laparoscopic cholecystectomy October 06. Doing well and surgery ready to discharge today. Attestations Medical Necessity Statement*: Not applicable Coding Level of Care Code Acute Child Protective Services Social Worker for Gaurang Vinson Diagnoses Hypertensive urgency I16.0
--- NOTE | 2020-10-09 16:45 | PC.NURSE ---
Patient DC instrustion given to patient, voiced full understanding. IV DC'd cath intact , bleeding controlled with 2x2 and coban. patient to main entrance via wheelchair to private vehicle with zero difficulties.
--- NOTE | 2020-10-10 06:03 | P.DS_ITS ---
Discharge Providers Date of Admission: 10/07/20 09:45 Date of Discharge: October 10, 2020 Attending Provider at Admission: Kan Mathews MD Attending Provider at Discharge: Kan Mathews MD Consults: Hospitalist team. Diagnoses at Discharge Discharge Diagnosis (1) Hypertensive urgency: Status: Resolved Reason for Visit Reason for Visit: Abdominal Pain Hospital Course Hospital Course This is a 64-year-old white female with a history of hypertension who presented to the emergency department with a 3-day history of abdominal pain. Work-up revealed evidence of acute calculus cholecystitis. Of note, the patient said she had stopped her antihypertensive medicine after not being able to get into see her primary care physician. She was taken to the operating room and a laparoscopic cholecystectomy was performed the same day. The night following her cholecystectomy, she exhibited significant hypertension with a systolic blood pressure around 220. The hospitalist team was consulted. After initially using some hydralazine, she was started on some oral an tihypertensives. She was watched that day with plans to discharge her the following morning. Unfortunately, the next night she ended up showing evidence of atrial fibrillation with rapid ventricular response. This was asymptomatic but she did mention that she felt like she had had some palpitations at home on occasion. She was started on a Cardizem drip after metoprolol was initially used. She converted to sinus rhythm and was then started on oral metoprolol in addition to Eliquis. Arrangements were made for her to follow-up with a superintendent drilling and production in 2 weeks. From a surgical perspective, she did well from the time of surgery. Her wounds look good at the time of discharge and her bowel function had returned. Arrangements will be made for her to follow-up in my office as an outpatient. She was instructed with respect to activity limitations, diet, wound care, etc. Physical Exam Narrative: EXAM NARRATIVE: Bowel sounds are present. Surgical incisions all look good. Discharge Data Data Completed and Pending: Completed Studies During Hospitalization Category Date Time Status CT abdomen pelvis w con* [id number] Stat Cat Scan 10/06/20 02:03 Completed Pathology: Surgic al [PTH] Routine Pth 10/06/20 11:06 Completed US abdomen comple te* [id number] Urgent Ultrasound 10/06/20 01:03 Completed Pending at discharge Category Date Time Status Aldosterone Routi ne Lab 10/07/20 04:59 Received Plasma Renin Acti vity LC/MS/MS Rout ine Lab 10/07/20 04:59 Received CV echo complete* [id number] Routine Ultrasound 10/09/20 07:10 Taken Labs from last 24 hours 10/09/20 10/09/20 10:10 10:10 WBC 10.2 H RBC 4.77 Hgb 12.9 Hct 39.8 MCV 83.4 MCH 27.0 L MCHC 32.4 RDW 13.7 Plt Count 341 MPV 11.1 H Neut % (Auto) 75.9 Lymph % (Auto) 13.8 Ogle % (Auto) 5.9 Eos % (Auto) 3.1 Baso % (Auto) 0.6 Neut # (Auto) 7.71 H Lymph # (Auto) 1.4 Ogle # (Auto) 0.6 Eos # (Auto) 0.3 Baso # (Auto) 0.1 Nucleated RBC % (a uto) 0 Nucleated RBCs # 0.0 Sodium 140 Potassium 3.0 L Chloride 104 Carbon Dioxide 25 Anion Gap 14.0 BUN 11 Creatinine 1.0 H GFR Calculation 55.5 L Glucose 149 H Calculated Osmolal ity 292 Calcium 9.0 Magnesium 2.0 Total Bilirubin 0.5 AST 16 ALT 30 Alkaline Phosphata se 92 Total Protein 6.7 Albumin 3.5 Globulin 3.2 Vitals: Last Vital Signs Temp 99.8 F H 10/09/20 16:45 Pulse 76 10/09/20 16:45 Resp 18 10/09/20 16:45 BP 165/96 10/09/20 16:45 Pulse Ox 95 10/09/20 16:45 Discharge Plan Discharge Patient Disposition: Home Condition: Stable Prescriptions: New amlodipine 5 mg Tablet 5 mg PO DAILY Qty: 30 RF: 0 lisinopril 10 mg Tablet 10 mg PO DAILY Qty: 30 RF: 0 metoprolol tartrate 25 mg Tablet 25 mg PO BID@0900,2100 Qty: 60 RF: 0 Eliquis 5 mg tablet 5 mg PO BID Qty: 60 RF: 0 Continued Claritin 10 mg Tablet 10 mg PO DAILY PRN (Reason: Allergy Symptoms) RF: 0 turmeric 400 mg Capsule 400 mg PO DAILY@0800 RF: 0 CoQ-10 1 tab PO DAILY@2200 RF: 0 Multi For Her 50 Plus 1 tab PO DAILY@0800 RF: 0 Jessica's wort 1 mg PO DAILY@0800 RF: 0 Discharge Orders: Discharge Order (Routine); Ordered 10/09/20 Ordered By: Rod Murray Other Ambulatory Orders: CA cardiac event monitor (Routine) Timeframe: 1 Day Facility: [facility] - Location: Cardiac Diagnostic Laboratory Ordered By: Rod Murray Referrals: Kan Mathews MD [Physician] - 10/22/20 1:30 pm (Nursing: Please call Dr. Mathews's office ([phone]) and make an appointment for the patient to be seen in 10- 14 days.) Simeon Gallo M.D [Physician] - 10/28/20 2:30 pm (Afib) Neris Narvaez PA [Staff Physician] - 10/15/20 1:30 pm Discharge Diet: Advance as tolerated Discharge Activity: Limit activity as instructed Patient Instructions: Atrial Fibrillation, Metoprolol (By mouth), Lisinopril (By mouth), Amlodipine (By mouth), Apixaban (By mouth), Laparoscopic Cholecystectomy (DC) Activity Restrictions/Additional Instructions: 1. Discharge to home today. 2. Appointment to see Dr. Mathews in 10-14 days as above. 3. Leave Steri-Strip(s) on at home as discussed, may shower. No lifting over 20 pounds, no repetitive bending or twisting, no strenuous pushing / pulling or other heavy activity. Ambulate regularly. May go up and down steps if needed. Keep follow-up with cardiology. For any evidence of bleeding such as black or tarry stools, blood in stools, frequent nosebleeds notify physician immediately as you are on an anticoagulant. Discharge Attestations Time Spent in Discharge Care*: less than 30 min Quality Metrics Clinical Quality Measures During this hospital stay, did patient experience: None Coding Level of Care Code Acute Ammonium Nitrate Neutralizer for Chg Fwd Diagnoses Hypertensive urgency I16.0
[2020-10-12 01:58] LABS: Plasma Renin Activity LC/MS/MS 0.91 ng/mL/h (0.25-5.82)
== END 2020-10-09 16:45 | disposition home or self-care (01) | DRG 418 ==
LOC: ER 10-06 03:43 → ICU 10-06 05:11 → MEDSURG 10-07 02:25
PROVIDERS: Internal Medicine; Nurse Practitioner Family; Admitting Provider Surgery; Emergency Provider Emergency Medicine; Visit Provider Surgery
PROC: 0FT44ZZ Resection of Gallbladder, Percutaneous Endoscopic Approach (ICD-10-PCS; CPT 47562; principal; 2020-10-06 09:30)
DX: K80.00 Calculus of gallbladder with acute cholecystitis without obstruction (principal); K91.71 Accidental puncture and laceration of a digestive system organ or structure during a digestive system procedure; Y65.8 Other specified misadventures during surgical and medical care; I10 Essential (primary) hypertension; I16.0 Hypertensive urgency; E87.6 Hypokalemia; K59.00 Constipation, unspecified; I48.91 Unspecified atrial fibrillation; Z91.14 Patient's other noncompliance with medication regimen
CPT/HCPCS: 12345; 36415; 74177; 76700; 80053; 81001; 82088; 83605; 83690; 83735; 84244; 84443; 85025; 85378; 88304; 93005; 93306; 94640; 96372; 99283; G0378; J0360; J0690; J1100; J1644; J1650; J2270; J2405; J2543; J2704; J2710; J3010; J3480; J3490; J7030; J7614; Q9967; S0030

== ENCOUNTER 2021-01-27 07:28 | Outpatient (CLI) | payer MEDICARE, SELFPAY ==
--- NOTE | 2021-01-27 07:33 | MM_ITS ---
WS: [id number] BILATERAL SCREENING DIGITAL MAMMOGRAM WITH CAD HISTORY: SCREENING COMPARISON: None available. Bilateral CC and MLO views submitted. Computer aided detection analyzed. Breast composition: There are scattered areas of fibroglandular density. No suspicious masses, microc alcifications or architectural distortion. Numerous bilateral intramammary lymph nodes. MM/[place] [id number] IMPRESSION: BI-RADS: 2-Benign FOLLOW UP: 1 Year Follow-up
== END 2021-01-27 07:29 | disposition home or self-care (01) ==
PROVIDERS: PCP Family Medicine; Visit Provider Physician Assistant
DX: Z12.31 Encounter for screening mammogram for malignant neoplasm of breast (principal)
CPT/HCPCS: 77067

== ENCOUNTER 2021-01-30 13:45 | Outpatient (CLI) | payer MEDICARE, SELFPAY ==
--- NOTE | 2021-01-30 14:07 | XR_ITS ---
WS: [id number] DEXA (DUAL ENERGY X-RAY ABSORPTIOMETRY) Bone mineral density was performed using a [employer] machine. HISTORY: POST MENOPAUSAL COMPARISON: None available. Lumbar spine BMD (L1-L4): 1.060 g/cm2 T score: -1.0 Z score: -0.5 Total hip BMD: Left: 0.897 g/cm2. T score: -0.9 Z score: -0.4 Right: 0.958 g/cm2. T score: -0.4 Z score: 0.1 10 year probability of a major osteoporotic fracture is 13%. XR/XR DEXA axial skeleton* [id number] IMPRESSION: OSTEOPENIA based upon the WHO classification for females.
== END 2021-01-30 13:46 | disposition home or self-care (01) ==
PROVIDERS: PCP Family Medicine; Visit Provider Nurse Practitioner
DX: Z78.0 Asymptomatic menopausal state (principal); M85.89 Other specified disorders of bone density and structure, multiple sites
CPT/HCPCS: 77080

== ENCOUNTER → 2022-05-22 10:10 | Outpatient (BNVA) | payer MEDICARE, SELFPAY | PROVIDERS: PCP Family Medicine; Visit Provider Internal Medicine | DX: I48.91 Unspecified atrial fibrillation (principal); Z79.01 Long term (current) use of anticoagulants; I10 Essential (primary) hypertension | CPT/HCPCS: 99213; 99214 ==

== ENCOUNTER 2023-01-28 11:26 | Outpatient (CLI) | payer MEDICARE, SELFPAY ==
--- NOTE | 2023-01-28 11:37 | MM_ITS ---
WS: [id number] BILATERAL SCREENING DIGITAL TOMOSYNTHESIS MAMMOGRAM WITH CAD HISTORY: SCREEN COMPARISON: 01/27/2021 Bilateral CC and MLO views with tomosynthesis and synthetic mammography submitted. Computer aided det ection analyzed. Breast composition: The breasts are almost entirely fatty. No suspicious masses, microcalcifications or architectural distortion. Benign intramammary lymph nodes. Benign calcifications within each breas t. MM/[place] [id number] IMPRESSION: BI-RADS: 2-Benign FOLLOW UP: 1 Year Follow-up
== END 2023-01-28 11:27 | disposition home or self-care (01) ==
LOC: RAD 11:29
PROVIDERS: PCP Family Medicine; Visit Provider Physician Assistant
DX: Z12.31 Encounter for screening mammogram for malignant neoplasm of breast (principal)
CPT/HCPCS: 77063; 77067

== ENCOUNTER → 2023-02-12 10:23 | Outpatient (BNVA) | payer MEDICARE, SELFPAY | PROVIDERS: PCP Family Medicine; Visit Provider Internal Medicine | DX: I48.91 Unspecified atrial fibrillation (principal); I35.0 Nonrheumatic aortic (valve) stenosis; I10 Essential (primary) hypertension; Z79.01 Long term (current) use of anticoagulants | CPT/HCPCS: 99214 ==

== ENCOUNTER 2023-02-24 08:43 | Outpatient (CLI) | payer MEDICARE, SELFPAY ==
--- NOTE | 2023-02-24 08:45 | USCV_ITS ---
Mariama Busby Age: 67 Gender: F : 1955 Exam Date: 02/24/2023 09:27 Ordering Phys: Simeon Gallo M.D ([email or web address]) Technologist: Jose Juan Bain [place] [facility] [place] Indication: Ao stenosis BP: 152 / 88 HR: 59 Rhythm: Sinus Technical Quality: Adequate MEASUREMENTS (Male / Female) Normal Values 2D ECHO LVOT Diameter 2.0 cm LV Ejection Fraction MOD 2C 82.1 % LV Ejection Fraction 2C AL 82.4 % LA Diameter 3.5 cm LA Width 3.8 cm LA Height 5.2 cm RA Width 3.7 cm RA Height 3.9 cm Aorta at Sinotubular Diameter 2.5 cm IVC Diameter 2.0 cm M-MODE Aortic Annulus Diameter 2.8 cm LA Ao Ratio MM 1.3 MV E Point Septal Separation 0.7 cm DOPPLER AV Peak Velocity 150.0 cm/s LVOT Peak Velocity 104.0 cm/s AV Area Cont Eq vti 2.4 cm squared AV Area Cont Eq pk 2.2 cm squared MV Peak Velocity 150.0 cm/s MV Area PHT 4.0 cm squared Mitral E to A Ratio 0.8 MV E' Velocity 49.5 cm/s Mitral E to MV E' Ratio 10.4 Mitral E to LV E' Lateral Ratio 9.7 Mitral E to LV E' Septal Ratio 11.3 TR Peak Velocity 286.9 cm/s TR Peak Gradient 32.9 mmHg TR Mean Velocity 214.7 cm/s TR Mean Gradient 20.1 mmHg TR Velocity Time Integral 76.9 cm Right Atrial Pressure 3.0 mmHg Pulmonary Artery Systolic Pressu 35.9 mmHg PV Peak Velocity 99.0 cm/s RV Acceleration Time 0.1 s RV Ejection Time 0.3 s RV AcT/ET 0.4 FINDINGS Left Ventricle Left ventricle is normal in size. LV systolic function is normal with EF of 60 to 65%. No regional wall motion abnormalities are seen. Grade 1 diastolic dysfunction. Right Ventricle Normal in size and function Right Atrium Normal in size Left Atrium Normal in size Mitral Valve Severe mitral annular calcification is seen. Mild mitral regurgitation. Aortic Valve Structurally normal aortic valve. Mild aortic regurgitation. No significant stenosis. Tricuspid Valve Mild tricuspid regurgitation. RVSP is normal. Pulmonic Valve Not well-visualized. Mild pulmonic regurgitation. Pericardium Not well-visualized Aorta Normal in size IVC Appears to be normal CONCLUSIONS LV systolic function is normal with EF of 60 to 65%. Grade 1 diastolic dysfunction. Mild mitral regurgitation Mild aortic regurgitation Mild pulmonic regurgitation Compared to prior echocardiogram from 2019, no significant changes are seen. Simeon Gallo MD (Electronically Signed) Final Date: 05 Mar 2023 16:13 S
== END 2023-02-24 08:44 | disposition home or self-care (01) ==
PROVIDERS: PCP Family Medicine; Visit Provider Internal Medicine
DX: I48.91 Unspecified atrial fibrillation (principal); I10 Essential (primary) hypertension; I35.0 Nonrheumatic aortic (valve) stenosis
CPT/HCPCS: 93306

== ENCOUNTER 2023-07-06 19:06 | Emergency (ER) | payer MEDICARE, SELFPAY ==
[2023-07-06 19:41] LABS: Basophils # 0.1 10^3/uL (0.0-0.1); Basophils % 0.5 %; Eosinophils # 0.1 10^3/uL (0.0-0.8); Eosinophils % 0.9 %; Hematocrit 45.1 % (36-47); Lymphocytes % 7.5 %; Mean Corpuscular HGB Conc 29.7 g/dL (30-55); Mean Corpuscular Hemoglobin 28.5 pg (27-33); Mean Platelet Volume 10.8 fL (7.4-10.4); Monocytes # 0.9 10^3/uL (0.2-0.9); Monocytes % 6.8 %; Neutrophils # 10.83 10^3/uL (1.8-7.7); Neutrophils % 83.8 %; Nucleated Red Blood Cells % 0 %; Platelet Count 247 10^3/cmm (157-399); Red Cell Distribution Width 13.6 % (12.1-15.1); White Blood Count 12.92 10^3/uL (3.29-11.43)
[2023-07-06 19:58] VITALS: BP 123/83; PULSE 59; RESP 18; TEMP 36.7; O2SAT 97; BMI 41.2
[2023-07-06 20:11] LABS: Alanine Aminotransferase 260 U/L (0-33); Albumin Level 4.3 g/dL (3.5-5.2); Alkaline Phosphatase 263 U/L (35-105); Anion Gap 17.8 (5-19); Aspartate Amino Transferase 155 U/L (0-32); Blood Urea Nitrogen 16 mg/dL (8-23); Calcium 9.2 mg/dL (8.5-10.5); Carbon Dioxide 20 mmol/L (22-29); Chloride 101 mmol/L (98-107); Globulin 2.6 g/dL (1.3-4.6); Glomerular Filtration Rate 71.1 mL/min (90-130); Glucose 146 mg/dL (65-115); Lipase 47 U/L (13-60); Osmolality Calculated 284 mOsm/kg (285-295); Potassium 3.8 mmol/L (3.5-5.1); Sodium 135 mmol/L (136-145); Total Bilirubin 2.4 mg/dL (0.15-1.2); Total Protein 6.9 g/dL (6.6-8.7)
[2023-07-06 21:00] VITALS: BP 195/90; PULSE 69; O2SAT 94
--- NOTE | 2023-07-06 21:07 | XRR_ITS ---
PROCEDURE INFORMATION: Exam: XR Abdomen Exam date and time: 07/06/2023 9:14 PM Age: 67 years old Clinical indication: Abdominal pain; Acute; Prior surgery; Surgery date: 6+ months; Surgery type: Appendectomy TECHNIQUE: Imaging protocol: Radiologic exam of the abdomen. Views: 2 Views. Upright and supine views. COMPARISON: CT abdomen pelvis w con* [id number] 10/06/2020 2:30 AM FINDINGS: Lungs: No focal consolidation. Heart/Mediastinum: Moderate-sized hiatal hernia. Gastrointestinal tract: Normal. No bowel dilation. Intraperitoneal space: Normal. No free air. Bones/joints: Unremarkable for age. XR/XR acute abdomen series [id number] IMPRESSION: No focal consolidation.
[2023-07-06 21:18] LABS: Add Urine Microscopic? YES; Bilirubin Urine 1+ (Negative); Blood Urine Trace (Negative); Glucose Urine UA Norm (Normal); Ketones Urine 1+ (Negative); Leukocyte Esterase Urine 1+ (Negative); Nitrate Urine Negative (Negative); Protein Urine Neg (Negative); RBC Urine 0-4 /hpf (0-2); Urine Appearance Clear (CLEAR); Urine Color Dark Yellow (Yellow); Urobilinogen Urine 4+ mg/dL (Negative); pH Urine 6 (5-7)
[2023-07-06 21:19] LABS: Add Urine Culture? No; Bacteria Urine 1+ /hpf; Mucus Urine 2+ /hpf
[2023-07-06] MEDS: sodium chloride 0.9% 1,000 ML 999 ML IV (21:37)
[2023-07-06] MEDS: ondansetron 2 mg/ML SDV 2 mL 4 MG IVP (21:38)
[2023-07-06] MEDS: HYDROmorphone 1 mg/mL INJ 1 mL 0.5 MG IVP (21:40)
--- NOTE | 2023-07-06 21:53 | USR_ITS ---
PROCEDURE INFORMATION: Exam: US Abdomen Complete Exam date and time: 07/06/2023 10:15 PM Age: 67 years old Clinical indication: Abdominal pain; Generalized; Prior surgery; Surgery date: 6+ months; Surgery type: [place] 2020; Patient HX: Elevated tbili = 2.4, elevated ast = 155, elevated alt = 260, elevated alkphos = 263, normal lipase = 47; Additional info: Ruq pain/ RO cbd stone TECHNIQUE: Imaging protocol: Real-time ultrasound of the abdomen with image documentation. Complete exam. COMPARISON: US abdomen complete* [id number] 10/06/2020 1:38 AM FINDINGS: Liver: No intraparenchymal lesions are seen. Gallbladder: The gallbladder is been removed. Biliary ducts: No stones. Mild dilatation of the CBD measuring up to 1.2 cm in diameter. Pancreas: Visualized portions of the pancreas are grossly unremarkable in appearance. The pancreas is however incompletely and suboptimally evaluated on this exam. Right kidney: The right kidney is mildly echogenic compatible with changes of mild age related chronic medical renal disease. There are few hypoechoic subcentimeter cystic lesions most compatible with benign cysts. No suspicious soft tissue mass. No hydronephrosis. Left kidney: The left kidney is mildly echogenic compatible with changes of mild age related chronic medical renal disease. There are few hypoechoic cystic lesions the largest measuring up to 1.0 cm in diameter, findings are most compatible with benign cysts. No suspicious soft tissue mass. No hydronephrosis. Spleen: No intraparenchymal lesions are seen. No splenomegaly. Aorta: No aneurysm. Inferior vena cava: Patent and grossly unremarkable in appearance. Other findings: Hepatopetal flow is seen within the main portal vein. US/US abdomen complete* [id number] IMPRESSION: 1. The CBD is mildly dilated measuring up to 1.2 cm in diameter this finding is likely at least partially related to operative changes of cholecystectomy. No sonographic findings of choledocholithiasis. Correlate and follow-up as clinically indicated. 2. Chronic/incidental findings as described above.
[2023-07-06 21:57] VITALS: PULSE 82; O2SAT 94
--- NOTE | 2023-07-06 22:46 | W.ED.ABDPA2 ---
Documented by User: Yaron Yoder MD 07/06/23 23:22 HPI - Abdominal Pain General: Chief Complaint: Abdominal Pain Stated Complaint: abd pain Time Seen by Provider: 07/06/23 20:50 History of Present Illness: This patient is a 67-year-old white female who presents to the ER complaining of upper abdominal pain which wraps around to the back. She states this is on both sides but it is worse on the right side. The pain came on after eating lunch today. She has had some nausea but no vomiting. She does have some constipation. No diarrhea. No dysuria. No fever. Past medical history includes hypertension and atrial fibrillation. Past surgical history is significant for a cholecystectomy. Review of Systems General: Reports: 10 or more systems reviewed and unremarkable except in HPI and below PFSH ED PFSH: Medical History Atrial fibrillation Hypertension Surgical History H/O resection of small bowel Intussusception as an infant Laceration of neck Anterior superficial neck injury sutured -- ran into barbed wire Vaginal injury Repair of vaginal tear sustained during childbirth Family History Other Family history non-contributory Social History Smoking and tobacco status: never smoked Alcohol intake: current Alcohol intake frequency: holidays/special occasions only Physical Exam Const: COMMON NORMALS: patient oriented x3 GENERAL APPEARANCE: in distress (mild) HENMT: COMMON NORMALS: normocephalic and moist oral mucous membranes HEAD & SCALP: normocephalic Eye: COMMON NORMALS: Equal, round and reactive pupils present, EOMs intact bilaterally, conjunctivae normal and no scleral icterus CONJUNCTIVA: Yes conjunctivae normal PUPIL: Yes Equal, round and reactive pupils present Neck/C-Spine: COMMON NORMALS: full ROM and supple Resp: COMMON NORMALS: normal respiratory effort and clear to auscultation bilaterally AUSCULTATION: clear to auscultation bilaterally Cardio: COMMON NORMALS: regular rate and regular rhythm RATE: regular rate RHYTHM: regular rhythm GI: COMMON NORMALS: Soft to palpation INSPECTION: No abdominal distension and Yes central obesity PALPATION: Yes Soft to palpation and Yes Tenderness to palpation present (GI) Details: RUQ Neuro: COMMON NORMALS: patient oriented x3 Skin: COMMON NORMALS: no rashes or lesions noted and no jaundice GENERAL SKIN EXAM: no rashes or lesions noted Course Vital Signs: Vital signs: Vital Signs Temperature 98.1 F 07/06/23 19:58 Pulse Rate 62 07/07/23 00:16 Respiratory Rate 22 H 07/07/23 00:16 Blood Pressure 167/86 07/06/23 23:00 Pulse Oximetry 95 07/07/23 00:16 Oxygen Delivery Me thod Room Air 07/07/23 00:16 MDM - Abdominal Pain Medical Decision Making CBC reveals a white blood cell count of 12.9. CMP reveals total bilirubin of 2.4, AST 155, alk phos 263 and ALT 260. Lipase was normal at 47. Urine analysis contaminated. Patient was given a 1 L bolus of normal saline, 4 mg of Zofran and 0.5 mg of Dilaudid IV. Lab Data 07/06/23 19:33 07/06/23 19:33 Labs/Radiology: Radiology Impressions Chest/Abdomen X-ray 07/06/23 21:07 IMPRESSION: No focal consolidation. Abdomen Ultrasound 07/06/23 21:53 IMPRESSION: 1. The CBD is mildly dilated measuring up to 1.2 cm in diameter this finding is likely at least partially related to operative changes of cholecystectomy. No sonographic findings of choledocholithiasis. Correlate and follow-up as clinically indicated. 2. Chronic/incidental findings as described above. Laboratory Results WBC 12.92 10^3/uL (3.29-11.43) H 07/06/23 19:33 RBC 4.70 10^6/uL (3.85-5.65) 07/06/23 19:33 Hgb 13.40 g/dL (11.27-16.99) 07/06/23 19:33 Hct 45.1 % (36-47) 07/06/23 19:33 MCV 96.0 fl (85-98) 07/06/23 19:33 MCH 28.5 pg (27-33) 07/06/23 19: MCHC 29.7 g/dL (30-55) L 07/06/23 19:33 RDW 13.6 % (12.1-15.1) 07/06/23 19:33 Plt Count 247 10^3/cmm (157-399) 07/06/23 19: MPV 10.8 fL (7.4-10.4) H 07/06/23 19:33 Neut % (Auto) 83.8 % 07/06/23 19: Lymph % (Auto) 7.5 % 07/06/23 19: [place] % (Auto) 6.8 % 07/06/23 19:33 Eos % (Auto) 0.9 % 07/06/23 19: Baso % (Auto) 0.5 % 07/06/23 19: Neut # (Auto) 10.83 10^3/uL (1.8-7.7) H 07/06/23 19: Lymph # (Auto) 1.0 10^3/uL (0.8-4.8) 07/06/23 19: [place] # (Auto) 0.9 10^3/uL (0.2-0.9) 07/06/23 19: Eos # (Auto) 0.1 10^3/uL (0.0-0.8) 07/06/23 19: Baso # (Auto) 0.1 10^3/uL (0.0-0.1) 07/06/23 19: Nucleated RBC % (auto) 0 % 07/06/23 19: Nucleated RBCs # 0.0 /100WBC 07/06/23 19:33 Sodium 135 mmol/L (136-145) L 07/06/23 19:33 Potassium 3.8 mmol/L (3.5-5.1) 07/06/23 19: Chloride 101 mmol/L (98-107) 07/06/23 19:33 Carbon Dioxide 20 mmol/L (22-29) L 07/06/23 19:33 Anion Gap 17.8 (5-19) 07/06/23 19:33 BUN 16 mg/dL (8-23) 07/06/23 19:33 Creatinine 0.8 mg/dL (0.5-0.9) 07/06/23 19:33 GFR Calculation 71.1 mL/min (90-130) L 07/06/23 19:33 Glucose 146 mg/dL (65-115) H 07/06/23 19:33 Calculated Osmolality 284 mOsm/kg (285-295) L 07/06/23 19:33 Calcium 9.2 mg/dL (8.5-10.5) 07/06/23 19:33 Total Bilirubin 2.4 mg/dL (0.15-1.2) H 07/06/23 19:33 AST 155 U/L (0-32) H 07/06/23 19:33 ALT 260 U/L (0-33) H 07/06/23 19:33 Alkaline Phosphatase 263 U/L (35-105) H 07/06/23 19:33 Total Protein 6.9 g/dL (6.6-8.7) 07/06/23 19: Albumin 4.3 g/dL (3.5-5.2) 07/06/23 19: Globulin 2.6 g/dL (1.3-4.6) 07/06/23 19: Lipase 47 U/L (13-60) 07/06/23 19:33 Urine Color Dark yellow (Yellow) 07/06/23 20:10 Urine Appearance Clear (CLEAR) 07/06/23 20:10 Urine pH 6 (5-7) 07/06/23 20:10 Ur Specific [place] 1.020 (1.005-1.030) 07/06/23 20:10 Urine Protein Neg (Negative) 07/06/23 20:10 Urine Glucose (UA) Norm (Normal) 07/06/23 20:10 Urine Ketones 1+ (Negative) H 07/06/23 20:10 Urine Blood Trace (Negative) H 07/06/23 20:10 Urine Nitrate Negative (Negative) 07/06/23 20:10 Urine Bilirubin 1+ (Negative) H 07/06/23 20:10 Urine Urobilinogen 4+ mg/dL (Negative) H 07/06/23 20:10 Ur Leukocyte Esterase 1+ (Negative) H 07/06/23 20:10 Urine RBC 0-4 /hpf (0-2) H 07/06/23 20:10 Urine WBC 5-10 /hpf (0-5) H 07/06/23 20:10 Ur Squamous Epith Cells 5-10 /hpf (0-5) H 07/06/23 20:10 Amorphous Sediment Not Reportable 07/06/23 20:10 Urine Bacteria 1+ /hpf (NONE) H 07/06/23 20:10 Urine Mucus 2+ /hpf 07/06/23 20:10 All radiology interpretation(s) finalized by discharge Discharge Plan Discharge Patient Disposition: Xfer Short-Term Hosp Clinical Impression: Abdominal pain, Serum total bilirubin elevated Condition: Stable Referrals: Carmelo Narvaez MD [Primary Care Provider] - Patient Instructions: Abdominal Pain (ED) Coding Level of Care Code ED Career Development Specialist for Chg Fwd Documented by User: Destiny Bird MD 07/07/23 01:16 HPI - Abdominal Pain General: Chief Complaint: Abdominal Pain Stated Complaint: abd pain Time Seen by Provider: 07/06/23 20:50 PFSH ED PFSH: Medical History Atrial fibrillation Hypertension Surgical History H/O resection of small bowel Intussusception as an Laceration of neck Anterior superficial neck injury sutured -- ran into barbed wire Vaginal injury Repair of vaginal tear sustained during childbirth Family History Other Family history non-contributory Social History Smoking and tobacco status: never smoked Alcohol intake: current Alcohol intake frequency: holidays/special occasions only Course Vital Signs: Vital signs: Vital Signs Temperature 98.1 F 07/06/23 19:58 Pulse Rate 62 07/07/23 00:16 Respiratory Rate 22 H 07/07/23 00:16 Blood Pressure 167/86 07/06/23 23:00 Pulse Oximetry 95 07/07/23 00:16 Oxygen Delivery Me thod Room Air 07/07/23 00:16 MDM - Abdominal Pain Medical Decision Making CBC reveals a white blood cell count of 12.9. CMP reveals total bilirubin of 2.4, AST 155, alk phos 263 and ALT 260. Lipase was normal at 47. Urine analysis contaminated. Patient was given a 1 L bolus of normal saline, 4 mg of Zofran and 0.5 mg of Dilaudid IV. Patient does have an elevated bilirubin and her ultrasound here did show common bile duct dilatation spoke to physician at [facility] will transfer due to no GI availability or MRCP or ERCP availability. Medical Records I reviewed the patient's medical records. Lab Data I reviewed the patient's lab results. 07/06/23 19:33 07/06/23 19:33 Labs/Radiology: Radiology Impressions Chest/Abdomen X-ray 07/06/23 21:07 IMPRESSION: No focal consolidation. Abdomen Ultrasound 07/06/23 21:53 IMPRESSION: 1. The CBD is mildly dilated measuring up to 1.2 cm in diameter this finding is likely at least partially related to operative changes of cholecystectomy. No sonographic findings of choledocholithiasis. Correlate and follow-up as clinically indicated. 2. Chronic/incidental findings as described above. Laboratory Results WBC 12.92 10^3/uL (3.29-11.43) H 07/06/23 19:33 RBC 4.70 10^6/uL (3.85-5.65) 07/06/23 19:33 Hgb 13.40 g/dL (11.27-16.99) 07/06/23 19:33 Hct 45.1 % (36-47) 07/06/23 19:33 MCV 96.0 fl (85-98) 07/06/23 19:33 MCH 28.5 pg (27-33) 07/06/23 19:33 MCHC 29.7 g/dL (30-55) L 07/06/23 19:33 RDW 13.6 % (12.1-15.1) 07/06/23 19:33 Plt Count 247 10^3/cmm (157-399) 07/06/23 19:33 MPV 10.8 fL (7.4-10.4) H 07/06/23 19:33 Neut % (Auto) 83.8 % 07/06/23 19:33 Lymph % (Auto) 7.5 % 07/06/23 19:33 [place] % (Auto) 6.8 % 07/06/23 19:33 Eos % (Auto) 0.9 % 07/06/23 19:33 Baso % (Auto) 0.5 % 07/06/23 19:33 Neut # (Auto) 10.83 10^3/uL (1.8-7.7) H 07/06/23 19: Lymph # (Auto) 1.0 10^3/uL (0.8-4.8) 07/06/23 19: [place] # (Auto) 0.9 10^3/uL (0.2-0.9) 07/06/23 19: Eos # (Auto) 0.1 10^3/uL (0.0-0.8) 07/06/23 19: Baso # (Auto) 0.1 10^3/uL (0.0-0.1) 07/06/23 19: Nucleated RBC % (auto) 0 % 07/06/23 19: Nucleated RBCs # 0.0 /100WBC 07/06/23 19:33 Sodium 135 mmol/L (136-145) L 07/06/23 19:33 Potassium 3.8 mmol/L (3.5-5.1) 07/06/23 19:33 Chloride 101 mmol/L (98-107) 07/06/23 19:33 Carbon Dioxide 20 mmol/L (22-29) L 07/06/23 19:33 Anion Gap 17.8 (5-19) 07/06/23 19:33 BUN 16 mg/dL (8-23) 07/06/23 19:33 Creatinine 0.8 mg/dL (0.5-0.9) 07/06/23 19:33 GFR Calculation 71.1 mL/min (90-130) L 07/06/23 19:33 Glucose 146 mg/dL (65-115) H 07/06/23 19:33 Calculated Osmolality 284 mOsm/kg (285-295) L 07/06/23 19:33 Calcium 9.2 mg/dL (8.5-10.5) 07/06/23 19:33 Total Bilirubin 2.4 mg/dL (0.15-1.2) H 07/06/23 19:33 AST 155 U/L (0-32) H 07/06/23 19:33 ALT 260 U/L (0-33) H 07/06/23 19:33 Alkaline Phosphatase 263 U/L (35-105) H 07/06/23 19:33 Total Protein 6.9 g/dL (6.6-8.7) 07/06/23 19:33 Albumin 4.3 g/dL (3.5-5.2) 07/06/23 19:33 Globulin 2.6 g/dL (1.3-4.6) 07/06/23 19:33 Lipase 47 U/L (13-60) 07/06/23 19:33 Urine Color Dark yellow (Yellow) 07/06/23 20:10 Urine Appearance Clear (CLEAR) 07/06/23 20:10 Urine pH 6 (5-7) 07/06/23 20:10 Ur Specific [place] 1.020 (1.005-1.030) 07/06/23 20:10 Urine Protein Neg (Negative) 07/06/23 20:10 Urine Glucose (UA) Norm (Normal) 07/06/23 20:10 Urine Ketones 1+ (Negative) H 07/06/23 20:10 Urine Blood Trace (Negative) H 07/06/23 20:10 Urine Nitrate Negative (Negative) 07/06/23 20:10 Urine Bilirubin 1+ (Negative) H 07/06/23 20:10 Urine Urobilinogen 4+ mg/dL (Negative) H 07/06/23 20:10 Ur Leukocyte Esterase 1+ (Negative) H 07/06/23 20:10 Urine RBC 0-4 /hpf (0-2) H 07/06/23 20:10 Urine WBC 5-10 /hpf (0-5) H 07/06/23 20:10 Ur Squamous Epith Cells 5-10 /hpf (0-5) H 07/06/23 20:10 Amorphous Sediment Not Reportable 07/06/23 20:10 Urine Bacteria 1+ /hpf (NONE) H 07/06/23 20:10 Urine Mucus 2+ /hpf 07/06/23 20:10 Discharge Plan Discharge Patient Disposition: Xfer Short-Term Hosp Clinical Impression: Abdominal pain, Serum total bilirubin elevated Condition: Stable Referrals: Carmelo Narvaez MD [Primary Care Provider] - Patient Instructions: Abdominal Pain (ED) Coding Level of Care Code ED Career Development Specialist for Gaurang Vinson
[2023-07-06 23:00] VITALS: BP 167/86; PULSE 72; O2SAT 93
[2023-07-07] VITALS (9 sets, daily range): BP systolic 128–153; BP diastolic 74–90; PULSE 62–67; RESP 17–22; O2SAT 93–98
[2023-07-07] MEDS: piperacillin-tazobactam 3.375 GM in sodium chloride 0.9% (plus) 50 ML IV (00:01)
--- NOTE | 2023-07-07 01:42 | PC.NURSE ---
Report called Michelle Metz lpn @ [address]
--- NOTE | 2023-07-07 04:55 | PC.NURSE ---
Patient up to restroom. Denies pain at this time.
== END 2023-07-07 09:20 | disposition short-term general hospital (02) ==
PROVIDERS: Emergency Provider Emergency Medicine; PCP Family Medicine
DX: R10.10 Upper abdominal pain, unspecified (principal); R17 Unspecified jaundice; I10 Essential (primary) hypertension
CPT/HCPCS: 36415; 74022; 76700; 80053; 81001; 83690; 85025; 87040; 96361; 96365; 96375; 99285; J1170; J2405; J2543; J7030

== ENCOUNTER 2023-07-22 14:40 | Outpatient (CLI) | payer MEDICARE, SELFPAY ==
--- NOTE | 2023-07-22 14:44 | XR_ITS ---
WS: [id number] SCREENING DEXA SCAN [employer] CLINICAL INFORMATION: POSTMENOPAUSAL COMPARISON: 01/30/2021 FINDINGS: The L1-L4 bone mineral density measures 1.037 g/cm2. This corresponds to a T score score of -1.2 and Z score of -0.6. Left femoral neck bone mineral density measures 0.916 g/cm2. This corresponds to a T score of -0.7 an d Z score of -0.1. Right femoral neck bone mineral density measures 0.943 g/cm2. This corresponds to a T score -0.5of an d Z score of 0.2. Mean femoral neck bone mineral density measures 0.930 g/cm2. This corresponds to a T score of -0.6 an d Z score of 0.0. IMPRESSION: Osteopenia lumbar spine. Normal bone mineralization femoral necks. Patient's FRAX calculated 10 year probability for major osteoporotic fracture is 14.2% and osteoporot ic hip fracture is 2.0%.
== END 2023-07-22 14:41 | disposition home or self-care (01) ==
PROVIDERS: PCP Family Medicine; Visit Provider Physician Assistant
DX: Z13.820 Encounter for screening for osteoporosis (principal); Z78.0 Asymptomatic menopausal state; M85.88 Other specified disorders of bone density and structure, other site
CPT/HCPCS: 77080

== ENCOUNTER → 2023-12-02 12:21 | Outpatient (BNVA) | payer MEDICARE, SELFPAY | PROVIDERS: PCP Family Medicine; Visit Provider Internal Medicine | DX: I48.91 Unspecified atrial fibrillation (principal); Z79.01 Long term (current) use of anticoagulants; I10 Essential (primary) hypertension; I35.0 Nonrheumatic aortic (valve) stenosis | CPT/HCPCS: 99214 ==

== ENCOUNTER → 2024-08-31 11:55 | Outpatient (BNVA) | payer MEDICARE, SELFPAY | PROVIDERS: PCP Family Medicine; Visit Provider Internal Medicine | DX: I48.91 Unspecified atrial fibrillation (principal); I10 Essential (primary) hypertension; I35.0 Nonrheumatic aortic (valve) stenosis; Z79.01 Long term (current) use of anticoagulants | CPT/HCPCS: 99214 ==

== ENCOUNTER 2025-02-01 08:18 | Outpatient (CLI) | payer MEDICARE, SELFPAY ==
--- NOTE | 2025-02-01 08:24 | MM_ITS ---
WS: [id number] VIEWS: MLO and CC views both breasts. 3D digital tomosynthesis is also included in this exam. Comparison made with prior exam of 01/27/2021, 01/28/2023.. Findings: There are scattered areas of fibroglandular density. No sign of suspicious mass, tumor calcification or architectural distortion. Stable appearing nodular densities in both breasts. MM/MM scr BI tomosynthesis [id number] Impression: BI-RADS: 2 - Benign. FOLLOW-UP: 1 Year Follow-up This mammogram was also analyzed by the Computer Aided Detection System [employer]2 [employer] Chemical Process Operator.
== END 2025-02-01 08:19 | disposition home or self-care (01) ==
LOC: RAD 08:20
PROVIDERS: PCP Family Medicine; Visit Provider Physician Assistant
DX: Z12.31 Encounter for screening mammogram for malignant neoplasm of breast (principal); R92.323 Mammographic fibroglandular density, bilateral breasts; N64.89 Other specified disorders of breast
CPT/HCPCS: 77063; 77067

== ENCOUNTER → 2025-05-31 14:30 | Outpatient (BNVA) | payer MEDICARE, SELFPAY | PROVIDERS: PCP Family Medicine; Visit Provider Nurse Practitioner Family | DX: I48.91 Unspecified atrial fibrillation (principal); Z79.01 Long term (current) use of anticoagulants; I10 Essential (primary) hypertension; R60.0 Localized edema | CPT/HCPCS: 99214 ==

== ENCOUNTER 2025-08-17 13:21 | Outpatient (CLI) | payer MEDICARE, SELFPAY ==
--- NOTE | 2025-08-17 13:26 | XR_ITS ---
WS: [id number] SCREENING DEXA SCAN [employer] CLINICAL INFORMATION: POST MENOPAUSAL COMPARISON: 2022 FINDINGS: The L1-L4 bone mineral density measures 0.999 g/cm2. This corresponds to a T score score of -1.5 and Z score of -1.0. Left femoral neck bone mineral density measures 0.892 g/cm2. This corresponds to a T score of -0.9 and Z score of -0.2. Right femoral neck bone mineral density measures 0.938 g/cm2. This corresponds to a T score -0.6of and Z score of 0.2. Mean femoral neck bone mineral density measures 0.915 g/cm2. This corresponds to a T score of -0.7 and Z score of 0.0. XR/XR DEXA axial skeleton* [id number] IMPRESSION: Osteopenia lumbar spine. Normal bone mineralization femoral necks. Patient's FRAX calculated 10 year probability for major osteoporotic fracture i s 8.9% and osteoporotic hip fracture is 1.3%. Bone density lumbar spine decreased -3.7% Bone density femoral necks decreased -1.6%
== END 2025-08-17 13:22 | disposition home or self-care (01) ==
LOC: RAD 13:22
PROVIDERS: PCP Family Medicine; Visit Provider Physician Assistant
DX: Z12.31 Encounter for screening mammogram for malignant neoplasm of breast (principal); Z78.0 Asymptomatic menopausal state; M85.88 Other specified disorders of bone density and structure, other site
CPT/HCPCS: 77080